=== PATIENT | male | born 1955 | race Caucasian/White ===

== ENCOUNTER 2024-12-04 13:06 | Outpatient (CLI) | payer MEDICARE, SELFPAY | END 2024-12-04 13:07 | disposition home or self-care (01) | LOC: AMB 12-07 09:01 | PROVIDERS: Visit Provider Family Medicine | DX: R45.851 Suicidal ideations (principal) | CPT/HCPCS: A0425; A0427 ==

== ENCOUNTER 2024-12-04 13:25 | Emergency (ER) | payer MEDICARE, SELFPAY ==
[2024-12-04] VITALS (18 sets, daily range): BP systolic 112–144; BP diastolic 63–93; PULSE 43–78; RESP 16; TEMP 36.5–36.7; O2SAT 96–100
--- NOTE | 2024-12-04 13:48 | ED_ITS ---
HPI - General Adult General Date Seen: 12/04/24 <Margarette Gillespie MD - Last Filed: 12/06/24 13:24> Chief complaint: Overdose <Margarette Gillespie MD - Last Filed: 12/06/24 13:24> Stated complaint: Mental Health <Margarette Gillespie MD - Last Filed: 12/06/24 13:24> Time Seen by Provider: 12/04/24 13:35 <Margarette Gillespie MD - Last Filed: 12/06/24 13:24> History of Present Illness HPI narrative: Patient is a 68-year-old here by EMS with family accompanying, for evaluation after intentional overdose. He tells me that he has been struggling with depression for 3 years, ever since he had a stroke. Sounds like he does not have really much in the way of residual deficits although he notes that his hands shake sometimes and he feels nervous and sometimes his head feels fuzzy or numb. He attributes these to his stroke. He notes anhedonia, fatigue, poor sleep. He says he was just tired of feeling this way and so today he took 20 melatonin, he was under the impression this was a sleeping pill. He now says he knows it was really a dumb thing to do. He denies other ingestion, denies prior suicide attempts. He says that for about 20 years he has been on Effexor which he says helps with some kind of ?head swing but does not seem to help with depression. He notes that someone started him on Buspar at some point which he took for about a month, did not feel was helpful and discontinued it. He has not really seen anybody specifically to address depression aside from that. <Margarette Gillespie MD - Last Filed: 12/06/24 13:24> Related Data Home medications: Home Medications ?Medication ?Instructions ?Recorded ?Confirmed venlafaxine 150 mg tablet,extended 150 mg PO DAILY 12/04/24 release 24 hr <Margarette Gillespie MD - Last Filed: 12/06/24 13:24> Allergies/adverse reactions: Allergies Allergy/AdvReac Type Severity Reaction Status Date / Time No Known Drug Allergies Allergy Verified 12/04/24 13:36 <Margarette Gillespie MD - Last Filed: 12/06/24 13:24> Review of Systems Status of ROS: Reports: 6 or more systems reviewed and unremarkable except as noted in History and below <Margarette Gillespie MD - Last Filed: 12/06/24 13:24> [facility] Social History: Social History Smoking Status: Never smoker How often do you have a drink containing alcohol: never AUDIT-C Alcohol total score: 0 Non-prescribed substance use: marijuana (any form) <Margarette Gillespie MD - Last Filed: 12/06/24 13:24> Exam Narrative: Exam Narrative: Vital signs reviewed In general, alert, nontoxic elderly male. Conversant, well groomed. Good eye contact. Head: Normocephalic, atraumatic. Eyes: Sclera clear. Pupils equal and reactive. ENT: Mucous membranes moist. Neck: Supple without adenopathy. Heart: Regular rate and rhythm without murmur. Lungs: Clear. No increased work of breathing, crackles or wheezes. Abdomen: Soft, nontender to palpation. Extremities: Well perfused, pulses intact. No significant edema. Neurologic: Alert, conversant. Speech fluent, face symmetric. Moves all extremities equally. Skin: Warm, dry well perfused. Affect: Flat <Margarette Gillespie MD - Last Filed: 12/06/24 13:24> Const: Vital Signs, click to edit/add: Vital Signs - 24 hr 12/04/24 13:31 12/04/24 13:39 12/04/24 13:45 Temperature 97.7 F Pulse Rate 52 L 49 L Pulse Rate [Pulse Oximeter] 54 L Respiratory Rate 16 Blood Pressure Blood Pressure [Le ft Upper Arm] 140/91 H Pulse Oximetry 97 98 98 Oxygen Delivery Me thod Room Air 12/04/24 13:46 12/04/24 14:00 12/04/24 14:01 Temperature Pulse Rate 60 47 L 48 L Pulse Rate [Pulse Oximeter] Respiratory Rate 16 Blood Pressure 137/93 H 138/84 Blood Pressure [Le ft Upper Arm] Pulse Oximetry 96 98 98 Oxygen Delivery Me thod 12/04/24 14:15 12/04/24 14:17 12/04/24 14:30 Temperature Pulse Rate 49 L 49 L 47 L Pulse Rate [Pulse Oximeter] Respiratory Rate Blood Pressure 137/92 H Blood Pressure [Le ft Upper Arm] Pulse Oximetry 99 99 98 Oxygen Delivery Me thod 12/04/24 14:31 12/04/24 14:45 12/04/24 14:46 Temperature Pulse Rate 43 L 46 L 45 L Pulse Rate [Pulse Oximeter] Respiratory Rate Blood Pressure 144/77 H 132/79 Blood Pressure [Le ft Upper Arm] Pulse Oximetry 96 100 98 Oxygen Delivery Me thod 12/04/24 15:00 12/04/24 15:02 12/04/24 15:15 Temperature Pulse Rate 48 L 48 L 46 L Pulse Rate [Pulse Oximeter] Respiratory Rate Blood Pressure Blood Pressure [Le ft Upper Arm] Pulse Oximetry 100 100 98 Oxygen Delivery Me thod 12/04/24 15:17 12/04/24 18:55 Temperature Pulse Rate 60 Pulse Rate [Pulse Oximeter] 78 Respiratory Rate 16 Blood Pressure 143/79 H Blood Pressure [Le ft Upper Arm] 112/63 Pulse Oximetry 98 98 Oxygen Delivery Me thod Room Air <Margarette Gillespie MD - Last Filed: 12/06/24 13:24> Vital Signs, click to edit/add: Vital Signs - 24 hr 12/04/24 13:31 12/04/24 13:39 12/04/24 13:45 Temperature 97.7 F Pulse Rate 52 L 49 L Pulse Rate [Pulse Oximeter] 54 L Respiratory Rate 16 Blood Pressure Blood Pressure [Le ft Upper Arm] 140/91 H Pulse Oximetry 97 98 98 Oxygen Delivery Me thod Room Air 12/04/24 13:46 12/04/24 14:00 12/04/24 14:01 Temperature Pulse Rate 60 47 L 48 L Pulse Rate [Pulse Oximeter] Respiratory Rate 16 Blood Pressure 137/93 H 138/84 Blood Pressure [Le ft Upper Arm] Pulse Oximetry 96 98 98 Oxygen Delivery Me thod 12/04/24 14:15 12/04/24 14:17 12/04/24 14:30 Temperature Pulse Rate 49 L 49 L 47 L Pulse Rate [Pulse Oximeter] Respiratory Rate Blood Pressure 137/92 H Blood Pressure [Le ft Upper Arm] Pulse Oximetry 99 99 98 Oxygen Delivery Me thod 12/04/24 14:31 12/04/24 14:45 12/04/24 14:46 Temperature Pulse Rate 43 L 46 L 45 L Pulse Rate [Pulse Oximeter] Respiratory Rate Blood Pressure 144/77 H 132/79 Blood Pressure [Le ft Upper Arm] Pulse Oximetry 96 100 98 Oxygen Delivery Me thod 12/04/24 15:00 12/04/24 15:02 12/04/24 15:15 Temperature Pulse Rate 48 L 48 L 46 L Pulse Rate [Pulse Oximeter] Respiratory Rate Blood Pressure Blood Pressure [Le ft Upper Arm] Pulse Oximetry 100 100 98 Oxygen Delivery Me thod 12/04/24 15:17 12/04/24 18:55 Temperature Pulse Rate 60 Pulse Rate [Pulse Oximeter] 78 Respiratory Rate 16 Blood Pressure 143/79 H Blood Pressure [Le ft Upper Arm] 112/63 Pulse Oximetry 98 98 Oxygen Delivery Me thod Room Air <Debi Ibarra MD - Last Filed: 12/04/24 21:14> Course Course ED Course: We touched base with poison Control, they are not concerned about the melatonin. We will check a Tylenol and aspirin level to make sure there is no coingestion. He certainly seems to be struggling with depression which is untreated at this time. He is telling me that he does not feel that he needs to be inpatient, that he recognizes that what he did today was not something he should have done. Family however reports that they been trying to get him to see someone for quite a while and he never seems to go. His friend who was with him said that he sent a text message to her after he took the pills telling her what she should do with his belongings. Will have him talk with telehealth and determine best disposition. I spoke with the [facility] psychiatrist. His conversation with family raises concerns about patient's ability to manage this at home, he lives alone, has history of alcohol abuse although he does not drink currently. He was upbeat with the psychiatrist to the point that it seems somewhat forced. To me, he acknowledges feeling extremely down, and overall we feel it is in his best interest to pursue inpatient placement. Although today's overdose was a benign substance, it sounds to me as if he thought he was taking sleeping pills that would actually cause harm, and he took a significant number of them. He is agreeable to that plan at this time. Labs checked including Tylenol aspirin alcohol, these are all negative with the exception of THC on his drug screen. Signed out to oncoming physician awaiting transfer. <Margarette Gillespie MD - Last Filed: 12/06/24 13:24> Reevaluation(s) Time of Reevaluation #1: 17:52 <Debi Ibarra MD - Last Filed: 12/04/24 21:14> Reevaluation #1: Nursing staff notified me that patient usually takes his venlafaxine at 5:00 p.m. at night. He is on extended-release, have ordered 150 mg. Patient has been medically cleared for psychiatric hospitalization. <Debi Alvares MD - Last Filed: 12/04/24 21:14> Time of Reevaluation #2: 21:13 <Debi Ibarra MD - Last Filed: 12/04/24 21:14> Reevaluation #2: [facility] has reported they accepted this patient by nursing staff. Arrangements will be made for transfer. <Debi Ibarra MD - Last Filed: 12/04/24 21:14> Vital Signs Vital signs: Initial Vital Signs Temperature 97.7 F 12/04/24 13:31 Temperature Source Temporal Artery Scan 12/04/24 13:31 Pulse Rate 54 L 12/04/24 13:31 Respiratory Rate 16 12/04/24 13:31 Blood Pressure 140/91 H 12/04/24 13:31 Blood Pressure Mean 107 H 12/04/24 13:31 Pulse Oximetry 97 12/04/24 13:31 Oxygen Delivery Method Room Air 12/04/24 13:31 Vital Signs Temperature 97.7 F 12/04/24 13:31 Pulse Rate 54 L 12/04/24 13:31 Respiratory Rate 16 12/04/24 13:31 Blood Pressure 140/91 H 12/04/24 13:31 Pulse Oximetry 97 12/04/24 13:31 Oxygen Delivery Method Room Air 12/04/24 13:31 Temperature 98.1 F 12/04/24 23:46 Pulse Rate 56 L 12/04/24 23:46 Respiratory Rate 16 12/04/24 23:46 Blood Pressure 130/78 12/04/24 23:46 Pulse Oximetry 98 12/04/24 23:46 Oxygen Delivery Method Room Air 12/04/24 23:46 <Margarette Gillespie MD - Last Filed: 12/06/24 13:24> Initial Vital Signs Temperature 97.7 F 12/04/24 13:31 Temperature Source Temporal Artery Scan 12/04/24 13:31 Pulse Rate 54 L 12/04/24 13:31 Respiratory Rate 16 12/04/24 13:31 Blood Pressure 140/91 H 12/04/24 13:31 Blood Pressure Mean 107 H 12/04/24 13:31 Pulse Oximetry 97 12/04/24 13:31 Oxygen Delivery Method Room Air 12/04/24 13:31 Vital Signs Temperature 97.7 F 12/04/24 13:31 Pulse Rate 54 L 12/04/24 13:31 Respiratory Rate 16 12/04/24 13:31 Blood Pressure 140/91 H 12/04/24 13:31 Pulse Oximetry 97 12/04/24 13:31 Oxygen Delivery Method Room Air 12/04/24 13:31 Temperature 98.1 F 12/04/24 23:46 Pulse Rate 56 L 12/04/24 23:46 Respiratory Rate 16 12/04/24 23:46 Blood Pressure 130/78 12/04/24 23:46 Pulse Oximetry 98 12/04/24 23:46 Oxygen Delivery Method Room Air 12/04/24 23:46 <Debi Ibarra MD - Last Filed: 12/04/24 21:14> Medications Administered Medications: Discontinued Medications Generic Name Dose Route Start Last Admin Trade Name Freq PRN Reason Stop Dose Admin Venlafaxine HCl 150 mg 12/04/24 17:51 12/04/24 17:59 Venlafaxine Er 75 Mg Capsule PO 12/04/24 17:52 150 mg ONCE ONE Administration <Margarette Gillespie MD - Last Filed: 12/06/24 13:24> Discontinued Medications Generic Name Dose Route Start Last Admin Trade Name Freq PRN Reason Stop Dose Admin Venlafaxine HCl 150 mg 12/04/24 17:51 12/04/24 17:59 Venlafaxine Er 75 Mg Capsule PO 12/04/24 17:52 150 mg ONCE ONE Administration <Debi Ibarra MD - Last Filed: 12/04/24 21:14> Medical Decision Making Lab Data Lab results reviewed: Yes I reviewed the patient's lab results <Debi Ibarra MD - L ast Filed: 12/04/24 21:14> Labs: Lab Results 12/04/24 12/04/24 Range/Units 13:58 16:02 WBC 5.85 (4.50-11.00) K/uL RBC 4.49 (4.30-5.90) m/uL Hgb 14.1 (13.5-17.5) gm/dL Hct 41.6 (37.0-53.0) % MCV 93 (80-100) fL MCH 31 (26-34) pg MCHC 34 (32-36) gm/dL RDW Coeff of Kaia 12.1 (11.5-15.5) % Plt Count 352 (140-440) K/uL Neut % (Auto) 53.1 (42.0-72.0) % Lymph % (Auto) 35.9 (20-44) % [place] % (Auto) 7.4 (0.0-11.0) % Eos % (Auto) 2.4 (0.0-7.0) % Baso % (Auto) 1.0 (0.0-3.0) % Neut # (Auto) 3.11 (1.7-7.0) K/uL Lymph # (Auto) 2.10 (0.90-2.90) K/uL Coryell # (Auto) 0.40 (0.00-0.90) K/UL Eos # (Auto) 0.14 (0.00-0.50) K/uL Baso # (Auto) 0.06 (0.00-0.30) K/uL Abs Immat Gran (auto) 0.01 (0.00-0.30) K/uL Imm/Tot Granulo (auto) 0.2 % Sodium 137 (135-149) mmol/L Potassium 4.4 (3.6-5.1) mmol/L Chloride 103 (96-114) mmol/L Carbon Dioxide 28 (20-32) mmol/L Anion Gap 6 L (7-15) mEq/L BUN 12 (7-30) mg/dL Creatinine 0.7 (0.5-1.5) mg/dL Estimated GFR 102 ml/min Glucose 100 (60-115) mg/dL Calcium 9.3 (8.4-10.6) mg/dL Total Bilirubin 0.5 (0.1-1.5) mg/dL Direct Bilirubin 0.2 (0.0-0.5) mg/dL AST 25 (12-35) U/L ALT 22 (4-50) U/L Alkaline Phosphatase 69 (40-150) U/L Total Protein 6.9 (6.0-8.3) g/dL Albumin 4.2 (3.3-5.0) g/dL Urine Color Yellow (Yellow) Urine Appearance Clear (Clear) Urine pH 6.0 (5.0-8.5) Ur Specific [place] 1.025 (1.000-1.030) Urine Protein Negative (Negative) Urine Glucose (UA) Negative (Negative) Urine Ketones Negative (Negative) Urine Blood Negative (Negative) Urine Nitrite Negative (Negative) Urine Bilirubin 1+ A (Negative) Urine Urobilinogen 0.2 (0.2-1.0) Ur Leukocyte Esterase Negative (Negative) Urine RBC 0-2 (0-2) Urine WBC 0-2 (0-5) Ur Squamous Epith Cells None (None-Few) Urine Bacteria None (None) Salicylates < 1.0 L (1.0-10) mg/dL Urine Opiates Screen Negative (Negative) Ur Oxycodone Screen Negative (Negative) Urine Methadone Screen Negative (Negative) Acetaminophen < 10.0 (10.0-30.0) ug/mL Ur Barbiturates Screen Negative (Negative) U Tricyclic Antidepress Negative (Negative) Ur Phencyclidine Scrn Negative (Negative) Ur Amphetamines Screen Negative (Negative) U Methamphetamines Scrn Negative (Negative) U Benzodiazepines Scrn Negative (Negative) Urine Cocaine Screen Negative (Negative) U Marijuana (THC) Screen POSITIVE A (Negative) Ur Drug Screen Comment See Note Ethyl Alcohol < 0.01 (0.01-0.03) % <Margarette Gillespie MD - Last Filed: 12/06/24 13:24> Lab Results 12/04/24 12/04/24 Range/Units 13:58 16:02 WBC 5.85 (4.50-11.00) K/uL RBC 4.49 (4.30-5.90) m/uL Hgb 14.1 (13.5-17.5) gm/dL Hct 41.6 (37.0-53.0) % MCV 93 (80-100) fL MCH 31 (26-34) pg MCHC 34 (32-36) gm/dL RDW Coeff of Kaia 12.1 (11.5-15.5) % Plt Count 352 (140-440) K/uL Neut % (Auto) 53.1 (42.0-72.0) % Lymph % (Auto) 35.9 (20-44) % [place] % (Auto) 7.4 (0.0-11.0) % Eos % (Auto) 2.4 (0.0-7.0) % Baso % (Auto) 1.0 (0.0-3.0) % Neut # (Auto) 3.11 (1.7-7.0) K/uL Lymph # (Auto) 2.10 (0.90-2.90) K/uL [place] # (Auto) 0.40 (0.00-0.90) K/UL Eos # (Auto) 0.14 (0.00-0.50) K/uL Baso # (Auto) 0.06 (0.00-0.30) K/uL Abs Immat Gran (auto) 0.01 (0.00-0.30) K/uL Imm/Tot Granulo (auto) 0.2 % Sodium 137 (135-149) mmol/L Potassium 4.4 (3.6-5.1) mmol/L Chloride 103 (96-114) mmol/L Carbon Dioxide 28 (20-32) mmol/L Anion Gap 6 L (7-15) mEq/L BUN 12 (7-30) mg/dL Creatinine 0.7 (0.5-1.5) mg/dL Estimated GFR 102 ml/min Glucose 100 (60-115) mg/dL Calcium 9.3 (8.4-10.6) mg/dL Total Bilirubin 0.5 (0.1-1.5) mg/dL Direct Bilirubin 0.2 (0.0-0.5) mg/dL AST 25 (12-35) U/L ALT 22 (4-50) U/L Alkaline Phosphatase 69 (40-150) U/L Total Protein 6.9 (6.0-8.3) g/dL Albumin 4.2 (3.3-5.0) g/dL Urine Color Yellow (Yellow) Urine Appearance Clear (Clear) Urine pH 6.0 (5.0-8.5) Ur Specific [place] 1.025 (1.000-1.030) Urine Protein Negative (Negative) Urine Glucose (UA) Negative (Negative) Urine Ketones Negative (Negative) Urine Blood Negative (Negative) Urine Nitrite Negative (Negative) Urine Bilirubin 1+ A (Negative) Urine Urobilinogen 0.2 (0.2-1.0) Ur Leukocyte Esterase Negative (Negative) Urine RBC 0-2 (0-2) Urine WBC 0-2 (0-5) Ur Squamous Epith Cells None (None-Few) Urine Bacteria None (None) Salicylates < 1.0 L (1.0-10) mg/dL Urine Opiates Screen Negative (Negative) Ur Oxycodone Screen Negative (Negative) Urine Methadone Screen Negative (Negative) Acetaminophen < 10.0 (10.0-30.0) ug/mL Ur Barbiturates Screen Negative (Negative) U Tricyclic Antidepress Negative (Negative) Ur Phencyclidine Scrn Negative (Negative) Ur Amphetamines Screen Negative (Negative) U Methamphetamines Scrn Negative (Negative) U Benzodiazepines Scrn Negative (Negative) Urine Cocaine Screen Negative (Negative) U Marijuana (THC) Screen POSITIVE A (Negative) Ur Drug Screen Comment See Note Ethyl Alcohol < 0.01 (0.01-0.03) % <Debi Ibarra MD - Last Filed: 12/04/24 21:14> Discharge Plan Discharge Clinical Impression: Depression, Intentional overdose <Margarette Gillespie MD - Last Filed: 12/06/24 13:24> Patient Disposition: Xfer Other <Margarette Gillespie MD - Last Filed: 12/06/24 13:24> Prescriptions: No Action venlafaxine 150 mg tablet extended release 24hr 150 mg PO DAILY <Margarette Gillespie MD - Last Filed: 12/06/24 13:24> Stand Alone Forms: MyHealth Info Instructions <Margarette Gillespie MD - Last Filed: 12/06/24 13:24>
--- OUTSIDE RECORDS SUMMARY | 2024-12-04 14:08 | XMS_ITS | Encounter Summary ---
Author Organization [facility] Address [address] [place] [id number] Care Team Providers Care Dry Talc Racker Name Role Phone Renea Vega PA-C Primary Care Provi camilo Emely Fernández RN Unavailable Unavailable Renea Vega PA-C Unavailable [phone] Renea Vega PA-C Unavailable [phone] Leann Arcos DO Unavailable [phone] Xiang Field PA-C Unavailable Xiang Field PA-C Unavailable [phone] Xiang Field PA-C Primary Care Provider Roberta Kirkland [facility] Unavailable + [phone] Roberta Kirkland [facility] Unavailable + [phone] Marcy Alvarez Bradford Unavailable [phone] Jailyn Weeks MARINE CHRONOMETER ASSEMBLER Unavailable [phone] Ivet Palmer [facility] Unavailable Unavailabl e Marcy Alvarez W Unavailable [phone] Jailyn Burch PSYCHIATRIC Unavailable Jaida Chávze Unavailable Unavailable David Mccord MD Unavailable Reason for Visit * Reason Onset Date Comments Medication Refill venlafaxine (E FFEXOR-XR) 75 MG 24 hr capsule Panel Management 05/19/2016 PHQ-9 Encounter Details Date Type Department Care Team (Late st Contact Info) Description 05/19/2016 Refill [facility] [address] [place] [phone] Renea Vega PA-C [address] [address] Medication Refill (venlafaxine (EFFEXOR-XR) 75 MG 24 hr capsule ); Panel Management (PHQ-9) Social History Tobacco Use Types Packs/Day Years Used Date Smoking Tobacco: Light Smoker Cigarettes Smokeless Tobacco: Never Comments:2-3 cigs. 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 Genoveva Vences CMA * Telephone Encounter - Genoveva Vences MA - 05/25/2016 3:23 PM CDT Sent questionnaires through [facility] to pt. Genoveva Vences CMA * Telephone Encounter - Carolynn Stiles RN - 05/20/2016 10:17 AM CDT Defer to provider, abstract writer unsure if 6 month follow up visit needed. Routing to PCP and CALOS Isaacs-Please sign if agree. MA-Please contact patient to complete PHQ-9. Thank you! SARIKA Grimes, RN venlafaxine (EFFEXOR-XR) 75 MG 24 hr capsule Last Written Prescription Date: 12/20/15 Last Fill Quantity: 90, # refills: 1 Last Office Visit with [facility], P or [facility] prescribing provider: 12/19/15 with Danisha Vega BP Readings from Last 3 Encounters: 12/19/15 100/76 04/03/15 108/60 12/04/14 100/68 Pulse: (for Fetzima) Creatinine Date Value Ref Range Status 12/19/2015 0.78 0.66 - 1.25 mg/dL Final ] Last PHQ-9 score on record= PHQ-9 SCORE 12/20/2015 Total Score MyChart - Total Score 2 documented in this encounter Plan of Treatment Not on file documented as of this encounter Goals Goal Patient Goal Type Associated Problems Recent Progress Patient-Stated? Author Medical General Yes Emely Fernández, RN Note: Patient states that he understands to seek emergency medical eval if he has suicidal ideation so that he is safe. As of today's date 04/24/2015 goal is met at 51 - 75%. Goal Status: Active documented as of this encounter Visit Diagnoses Diagnosis PAULO (generalized anxiety disorder) Generalized anxiety disorder Major depressive disorder, recurrent, severe without psychotic features (H) Major depressive disorder, recurrent episode, severe, without mention of psychotic behavior documented in this encounter Additional Health Concerns Assessment Noted Time PHQ-9 Depression Total Score: 2 12/21/19 16 7:21 AM CDT documented as of this encounter Care Teams Dry Talc Racker Relationship Specialty Start Date End Date Renea Vega PA-C PCP - General Physician Bilingual Medical Receptionist 09/19/13 01/19/24 Renea Vega PA-C [address] [address] PCP - Assigned PCP 09/24/13 05/10/18 Xiang Field PA-C [address] [place] [address] PCP - General Physician Bilingual Medical Receptionist 01/20/24 11/29/24 Emely Fernández, RN [facility] Internal Medicine 04/24/15 Renea Vega PA-C [address] [address] Assigned PCP 09/24/13 12/24/18 Leann Arcos DO [address] [place] [address] Physician Neurology 11/23/23 Xiang Field PA-C [address] [place] [address] Physician Bilingual Medical Receptionist Physician Bilingual Medical Receptionist 11/23/23 Xiang Field PA-C [address] [place] [address] Assigned PCP 12/29/23 Roberta Kirkland [facility] [address] [place] [address] [phone] Pharmacist Pharmacist 01/26/24 Roberta Kirkland [facility] [address] [place] [address] [phone] Assigned MTM Pharmacist 01/29/24 Marcy Alvarez, CHW Community Health Worker 04/20/2404/21 Jailyn Weeks, [facility] Lead Machinist [facility] Primary Care - CC 04/21/24 Ivet Palmer [facility] Lead Machinist Wood 04/28/2407/07 Marcy Alvarez, W Community Health Worker 04/28/2405/22 Jailyn Burch, [facility] [address] [facility] LAMBERT Mendoza [address] [id number] Assigned Behavioral Health Provider 04/30/24 Jaida Chávez Community Health Worker 05/22/2407/07 David Mccord MD [address] [facility] [place] [place] [address] Assigned Neuroscience Provider 05/28/24 documented as of this encounter
--- OUTSIDE RECORDS SUMMARY | 2024-12-04 14:08 | XMS_ITS | Encounter Summary ---
Author Organization [facility] Address [address], [place] [address] Care Team Providers Care Oven Roaster Name Role Phone Dillon Dodd PA-C Primary Care Provider + [phone] Encounter Details Date Type Department Care Team (Latest Contact Info) Description 02/10/1995 Orders Only Allan Ashford MD [facility] ALLAN Mendoza [facility], [address] Social History Tobacco Use Types Packs/Day Years Used Date Smoking Tobacco: Never Assessed Sex and Gender Information Value Date Recorded Sex Assigned at Not on file Legal Sex Male 4:09 AM CDT Gender Identity Not on file Sexual Orientation Not on file documented as of this encounter Plan of Treatment Not on file documented as of this encounter Visit Diagnoses Not on filedocumented in this encounter Additional Health Concerns Infection Onset Date Last Indicated Resolved Time R/O COVID19 01/26/2020 01/26/2020 02/02/2020 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
--- OUTSIDE RECORDS SUMMARY | 2024-12-04 14:08 | XMS_ITS | Encounter Summary ---
Author Organization [facility] Address [address] [place] [address] Care Team Providers Care Tax Associate Name Role Phone Renea Vega PA-C Primary Care Provi camilo Emely Fernández RN Unavailable Unavailable Renea Vega PA-C Unavailable +[phone] Renea Vega PA-C Unavailable +[phone] Leann Arcos DO Unavailable [phone] Xiang Field PA-C Unavailable Xiang Field PA-C Unavailable +[phone] Xiang Field PA-C Primary Care Provider Roberta Kirkland [facility] Unavailable + [phone] Roberta Kirkland [facility] Unavailable + [phone] Marcy Alvarez Bradford Unavailable [phone] Jailyn Weeks MATH COACH Unavailable Ivet Palmer [facility] Unavailable Unavailabl e Marcy Alvarez W Unavailable [phone] Jailyn Burch [facility] Unavailable Jaida Chávez Unavailable Unavailable David Mccord MD Unavailable Reason for Visit * Reason Onset Date Comments Patient Reminder 09/11/2015 Due for f/u rafael t with Silvia as per plan in last ov. Encounter Details Date Type Department Care Team (Late st Contact Info) Description 09/11/2015 [facility] [address] [address] Kristen Salinas, RN Patient Reminder (Due for f/u appt with Pl... Social History Tobacco Use Types Packs/Day Years Used Date Smoking Tobacco: Every Day Cigarettes Smokeless Tobacco: Never Comments:2-3 cigs. 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 Gender Identity Male 06/28/2024 4:08 PM CDT Sexual Orientation Straight 06/28/2024 4 :08 PM CDT documented as of this encounter Plan of [...] filedocumented in this encounter Additional Health Concerns Assessment Noted Time PHQ-9 Depression Total Score: 17 016 9:38 AM RUBBER STAMP ASSEMBLER documented as of this encounter Care Teams Tax Associate Relationship Specialty Start Date End Date Renea Vega PA-C PCP - General Physician Content Coordinator 09/19/13 01/19/24 Renea Vega PA-C [address] [address] PCP - Assigned PCP 09/24/13 05/10/18 Xiang Field PA-C [address] [address] PCP - General Physician Content Coordinator 01/20/24 11/29/24 Emely Fernández, RN Clinic Dyeing Machine Feeder Internal Medicine 04/24/15 Renea Vega PA-C [address] [address] Assigned PCP 09/24/13 12/24/18 Leann Arcos DO [address] [place] [address] Physician Neurology 11/23/23 Xiang Field PA-C [address] [place] [address] Physician Content Coordinator Physician Content Coordinator 11/23/23 Xiang Field PA-C [address] [place] [address] Assigned PCP 12/29/23 Roberta Kirkland [facility] [address] [place] [address] [id number] Pharmacist Pharmacist 01/26/24 Roberta Kirkland [facility] [address] [place] [address] 369114 Assigned MTM Pharmacist 01/29/24 Marcy Alvarez CHW Community Health Worker 04/20/2404/21 Jailyn Weeks, [facility] Lead Dyeing Machine Feeder Primary Care - CC 04/21/24 Ivet Palmer LICSW Lead Dyeing Machine Feeder 04/28/2407/07 Marcy Alvarez, W Community Health Worker 04/28/2405/22 Jailyn Burch, [facility]IOR[facility] [address] [facility] [place] Mendoza [address] [address] Assigned Behavioral Health Provider 04/30/24 Jaida Chávez Community Health Worker 05/22/2407/07 David Mccord MD 6545 [facility] [place] [address] Assigned Neuroscience Provider 05/28/24 documented as of this encounter
--- OUTSIDE RECORDS SUMMARY | 2024-12-04 14:08 | XMS_ITS | Encounter Summary ---
Author Organization [facility] Address [address] [place] [address] Care Team Providers Care Make Up Arranger Name Role Phone Renea Vega PA-C Primary Care Provi camilo Emely Fernández RN Unavailable Unavailable Renea Vega PA-C Unavailable +[phone] Renea Vega PA-C Unavailable +[phone] Leann Arcos DO Unavailable [phone] Xiang Field PA-C Unavailable Xiang Field PA-C Unavailable +[phone] Xiang Field PA-C Primary Care Provider Roberta Kirkland [facility] Unavailable + [phone] Roberta Kirkland [facility] Unavailable + [phone] Marcy Alvarez Bradford Unavailable [phone] Jailyn Weeks ELEMENTARY EDUCATOR Unavailable [phone] Ivet Palmer [facility] Unavailable Unavailabl e Marcy Alvarez CHW Unavailable [phone] Jailyn Burch [facility] Unavailable Jaida Chávez Unavailable Unavailable David Mccord MD Unavailable Encounter Details Date Type Department Care Team (Late st Contact Info) Description 05/25/2016 My[facility] Medical Advice [address] [address] Genoveva Vences MA Social History Tobacco Use Types Packs/Day Years [...] PM CDT 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 Sex Male 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 COUNTER 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 Gender Identity Male 06/28/2024 4:08 PM CDT [...] documented as of this encounter Care Teams Make Up Arranger Relationship Specialty Start Date End Date Renea Vega PA-C PCP - General Physician Home Health Travel Ot 09/19/13 01/19/24 Renea Vega PA-C 3033 [facility] [address] [place] [address] PCP - Assigned PCP 09/24/13 05/10/18 Xiang Field PA-C [address] [address] PCP - General Physician Home Health Travel Ot 01/20/24 11/29/24 Emely Fernández, RN Clinic Cnc Lathe Programmer Internal Medicine 04/24/15 Renea Vega PA-C [address] [address] Assigned PCP 09/24/13 12/24/18 Leann Arcos DO [address] [place] [address] Physician Neurology 11/23/23 Xiang Field PA-C [address] [address] Physician Home Health Travel Ot Physician Home Health Travel Ot 11/23/23 Xiang Field PA-C [address] [address] Assigned PCP 12/29/23 Roberta Kirkland [facility] [address] [place] [address] [id number] Pharmacist Pharmacist 01/26/24 Roberta Kirkland [facility] [address] [place] [address] 542964 Assigned MTM Pharmacist 01/29/24 Marcy Alvarez CHW Community Health Worker 04/20/2404/21 Jailyn Weeks LSW Lead Cnc Lathe Programmer Primary Care - CC 04/21/24 Ivet Palmer LICSW Lead Cnc Lathe Programmer 04/28/2407/07 Marcy Alvarez, W Community Health Worker 04/28/2405/22 Jailyn Burch, [facility] BEHAVIORAL HEALTH 606 [facility] L[facility] Mendoza, [address] [address] Assigned Behavioral Health Provider 04/30/24 Jaida Chávez Community Health Worker 05/22/2407/07 David Mccord MD [address] [facility] [place] Mendoza [place], [place] [address] Assigned Neuroscience Provider 05/28/24 documented as of this encounter
--- OUTSIDE RECORDS SUMMARY | 2024-12-04 14:08 | XMS_ITS | Encounter Summary ---
Author Organization [facility] Address [address], [place] [address] Care Team Providers Care Outside Contractor Sales Name Role Phone Dillon Dodd PA-C Primary Care Provider + [phone] Encounter Details Date Type Department Care Team (Latest Contact Info) Description 08/31/1995 Orders Only Allan Ashford MD OFF SITE [facility] ALLAN Mendoza [facility], [address] Social History Tobacco Use Types Packs/Day Years [...] R/O COVID19 01/26/2020 01/26/2020 02/02/2020 3:17 AM CAMPUS MONITOR documented as of this encounter Care Teams Outside Contractor Sales Relationship Specialty Start Date End Date Dillon Dodd PA-C [address] [place] [address] PCP - General Physician Trestleman 09/01/22 06/29/24 documented as of this encounter
--- OUTSIDE RECORDS SUMMARY | 2024-12-04 14:08 | XMS_ITS | Encounter Summary ---
Author Organization [employer] Address [address], [place] [address] Care Team Providers Care Industrial Engineering Manager Name Role Phone Dillon Dodd PA-C Primary Care Provider [phone] Encounter Details Date Type Department Care Team (Latest Contact Info) Description 11/12/1995 Orders Only Bob West MD [address] [place] [address] Social History Tobacco Use Types Packs/Day Years [...] R/O COVID19 01/26/2020 01/26/2020 02/02/2020 3:17 AM POLICE SPECIALIST documented as of this encounter Care Teams Industrial Engineering Manager Relationship Specialty Start Date End Date Dillon Dodd PA-C [address] [place] [address] PCP - General Physician Crester 09/01/22 06/29/24 documented as of this encounter
--- OUTSIDE RECORDS SUMMARY | 2024-12-04 14:08 | XMS_ITS | Encounter Summary ---
Author Organization [employer] Address [address], [place] [address] Care Team Providers Care Pin Drafting Machine Tender Name Role Phone Dillon Dodd PA-C Primary Care Provider + [phone] Encounter Details Date Type Department Care Team (Latest Contact Info) Description 05/10/2017 Correspondence None No Primary/Referring, Phy NEW PATIENT Social History Tobacco Use Types Packs/Day Years Used Date Smoking Tobacco: Some Days Cigarettes Smokeless Tobacco: Never Comments:cutting down and ab out to quit soon Alcohol Use Standard Drinks/Week Comments Yes 0 (1 standard drink = 0.6 oz pur e alcohol) occationally Sex and Gender Information Value Date Recorded [...] R/O COVID19 01/26/2020 01/26/2020 02/02/2020 3:17 AM COMMERCIAL ACCOUNTANT documented as of this encounter Care Teams Pin Drafting Machine Tender Relationship Specialty Start Date End Date Dillon Dodd PA-C [address] [place] [address] PCP - General Physician Web Pressman 09/01/22 06/29/24 documented as of this encounter
--- OUTSIDE RECORDS SUMMARY | 2024-12-04 14:09 | XMS_ITS | Encounter Summary ---
Author Organization [facility] Address [address] [place] [address] Care Team Providers Care Manager Internship Name Role Phone Enrrique Grant MD Primary Care Provider [phone] Renea Vega PA-C Primary Care Provi cmailo Emely Fernández RN Unavailable Unavailable Renea Vega PA-C Unavailable +[phone] Renea Vega PA-C Unavailable +[phone] Leann Arcos DO Unavailable [phone] Xiang Field PA-C Unavailable [phone] Xiang Field PA-C Unavailable +[phone] Xiang Field PA-C Primary Care Provider Roberta Kirkland [facility] Unavailable + [phone] Roberta Kirkland [facility] Unavailable +[phone] Marcy Alvarez [facility] Unavailable [phone] Jailyn Weeks [facility] Unavailable +[phone] Ivet Palmer [facility] Unavailable Unavailabl e Marcy Alvarez CHW Unavailable [phone] Jailyn Burch [facility] Unavailable + [phone] Jaida Chávez Unavailable Unavailable FlexDavid skinner MD Unavailable Encounter Details Date Type Department Care Team (Late st Contact Info) Description 07/12/2013 MyC Medical Advice [address] [phone] Beth Lilly, CHIEF PAYROLL CLERK Social History Tobacco Use Types Packs/Day Years Used Date Smoking Tobacco: Every Day Cigarettes Smokeless Tobacco: Never Alcohol Use Standard Drinks/Week Comments Yes 0 (1 standard drink = 0.6 oz pur e alcohol) once ain awhile Sex and Gender Information Value Date Recorded Sex Assigned at Male 06/28/2024 4:08 PM CDT Legal 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 Male 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 ROLL 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 Gender Identity Male 06/28/2024 4:08 PM CDT Sexual Orientation Straight 06/28/2024 4: 08 PM CDT documented as of this encounter Plan of Treatment Not on file documented as of this encounter Visit Diagnoses Not on filedocumented in this encounter Care Teams Manager Internship Relationship Specialty Start Date End Date Enrrique Grant MD PCP - General Family Practice 12/09/12 09/18/13 Renea Vega PA-C PCP - General Physician Field Investigator 09/19/13 01/19/24 Renea Vega PA-C 3033 [facility] [address] [place] [address] PCP - Assigned PCP 09/24/13 05/10/18 Xiang Field PA-C 2270 [facility] 200 [place] [address] PCP - General Physician Field Investigator 01/20/24 11/29/24 Emely Fernández RN Clinic Manager Internship Internal Medicine 04/24/15 Renea Vega PA-C 3033 [facility] [address] [place] [address] Assigned PCP 09/24/13 12/24/18 Leann Arcos DO [address] [place] [address] Physician Neurology 11/23/23 Xiang Field PA-C [address] [place] [address] Physician Field Investigator Physician Field Investigator 11/23/23 Xiang Field PA-C [address] [address] Assigned PCP 12/29/23 Roberta Kirkland [facility] [address] [place] [address] 606194 Pharmacist Pharmacist 01/26/24 Roberta Kirkland [facility] [address] [place] [address] Assigned MTM Pharmacist 01/29/24 Marcy Alvarez CHW Community Health Worker 04/20/2404/21 Jailyn Weeks LSW Lead Manager Internship Primary Care - CC 04/21/24 Ivet Palmer LICSW Lead Manager Internship 04/28/2407/07 Marcy Alvarez CHW Community Health Worker 04/28/2405/22 Jailyn Burch, [facility] BEHAVIORAL HE[facility] 606 [facility] [place] Mendoza, [address] [address] Assigned Behavioral Health Provider 04/30/24 Jaida Chávez Community Health Worker 05/22/2407/07 David Mccord MD 6545 [facility] [place], [place] [address] Assigned Neuroscience Provider 05/28/24 documented as of this encounter
--- OUTSIDE RECORDS SUMMARY | 2024-12-04 14:09 | XMS_ITS | Encounter Summary ---
Author Organization [facility] Address [address] [place] [address] Care Team Providers Care Rubber Belt Splicer Name Role Phone Enrrique Grant MD Primary Care Provider [phone] Renea Vega PA-C Primary Care Provi camilo Emely Fernández RN Unavailable Unavailable Renea Vega PA-C Unavailable +[phone] Renea Vega PA-C Unavailable +[phone] Leann Arcos DO Unavailable [phone] Xiang Field PA-C Unavailable +[phone] Xiang Field PA-C Unavailable +[phone] Xiang Field PA-C Primary Care Provider Roberta Kirkland [facility] Unavailable + [phone] Roberta Kirkland [facility] Unavailable +[phone] Marcy Alvarez [facility] Unavailable [phone] Jailyn Weeks RAM CAR OPERATOR Unavailable [phone] Ivet Palmer [facility] Unavailable Unavailabl e Marcy Alvarez CHW Unavailable [phone] Jailyn Burch [facility] Unavailable + [phone] Jaida hCávez Unavailable Unavailable FlexDavid skinner MD Unavailable Reason for Visit * Reason Onset Date Comments Refill Request 01/10/2013 PHQ-9 Encounter Details Date Type Department Care Team (Late st Contact Info) Description 01/10/2013 [facility] [address] [place] [address] Erlinda [facility] Refill Request (PHQ-9) Social History Tobacco Use Types Packs/Day Years Used Date Smoking Tobacco: Every Day Cigarettes Smokeless Tobacco: Never Alcohol Use Standard Drinks/Week Comments Yes 0 (1 standard drink = 0.6 oz pur e alcohol) once ain awhile Sex and Gender Information Value Date Recorded Sex Assigned at Male 06/28/2024 4:08 PM CDT Legal Sex Male 3:[address]TER Gender Identity Male 06/28/2024 4:08 PM CDT Sexual Orientation Straight 06/28/2024 4: 08 PM CDT documented as of this encounter Plan of Treatment Not on file documented as of this encounter Visit Diagnoses Not on filedocumented in this encounter Care Teams Rubber Belt Splicer Relationship Specialty Start Date End Date Enrrique Grant MD PCP - General Family Practice 12/09/12 09/18/13 Renea Vega PA-C PCP - General Physician Supervisor Blood Donor Recruiters 09/19/13 01/19/24 Renea Vega PA-C 3033 [facility] 275 [place] [address] PCP - Assigned PCP 09/24/13 05/10/18 Xiang Field PA-C 2270 [facility] 200 [place] [address] PCP - General Physician Supervisor Blood Donor Recruiters 01/20/24 11/29/24 Emely Fernández, RN Clinic Gravel Roofer Internal Medicine 04/24/15 Renea Vega PA-C [address] [address] Assigned PCP 09/24/13 12/24/18 Leann Arcos DO [address] [place] [address] Physician Neurology 11/23/23 Xiang Field PA-C [address] [place] [address] Physician Supervisor Blood Donor Recruiters Physician Supervisor Blood Donor Recruiters 11/23/23 Xiang Field PA-C [address] [place] [address] Assigned PCP 12/29/23 Roberta Kirkland [facility] [address] [place] [address] Pharmacist Pharmacist 01/26/24 Roberta Kirkland [facility] [address] [place] [address] Assigned MTM Pharmacist 01/29/24 Marcy Alvarez CHW Community Health Worker 04/20/2404/21 Jailyn Weeks LSW Lead Gravel Roofer Primary Care - CC 04/21/24 Ivet Palmer LICSW Lead Gravel Roofer 04/28/2407/0725 Marcy Alvarez, W Community Health Worker 04/28/2405/22 Jailyn Burch, [facility] BEHAVIORAL HEALTH 606 [facility]AM[facility]ERT Mendoza, [address] [address] Assigned Behavioral Health Provider 04/30/24 Jaida Chávez Community Health Worker 05/22/24 504/01 David Mccord MD 6545 [facility] [place]endoza [place], [place] [address] Assigned Neuroscience Provider 05/28/24 documented as of this encounter
--- OUTSIDE RECORDS SUMMARY | 2024-12-04 14:09 | XMS_ITS | Encounter Summary ---
Author Organization [facility] Address [address] [place] [address] Care Team Providers Care Resume Specialist Name Role Phone Renea Vega PA-C Primary Care Provi camilo Emely Fernández RN Unavailable Unavailable Renea Vega PA-C Unavailable +[phone] Renea Vega PA-C Unavailable +[phone] Leann Arcos DO Unavailable [phone] Xiang Field PA-C Unavailable +[phone] Xiang Field PA-C Unavailable +[phone] Xiang Field PA-C Primary Care Provider Roberta Kirkland [facility] Unavailable + [phone] Roberta Kirkland [facility] Unavailable + [phone] Mracy Alvarez Bradford Unavailable [phone] Jailyn Weeks HELMET HAT SWEATBAND PUNCHER Unavailable Ivet Palmer 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 SARIKA Grimes, RN * Telephone Encounter - Viridiana Mota - 05/17/2015 2:43 PM CST Spoke with patient and he is currently seeing a provider for this situation now has the next 3 Wednesday seeing this other provider after his visits with provider he will come in to see [facility]er FOOD DELIVERY DRIVER * Telephone Encounter - Genoveva Vences MA - 05/17/2015 9:46 AM CST Entered phq 9 and PAULO. Mychart pt to make an appointment because his score was a 17. Genoveva Vences MA FOOD DELIVERY DRIVER documented in this encounter Plan of Treatment [...] Depression Total Score: 17 016 9:38 AM FAST FOOD DELIVERY DRIVER documented as of this encounter Care Teams Resume Specialist Relationship Specialty Start Date End Date Renea Vega PA-C PCP - General Physician Senior Manufacturing Engineer 09/19/13 01/19/24 Renea Vega PA-C [address] [address] PCP - Assigned PCP 09/24/13 05/10/18 Xiang Field PA-C 2270 [facility] 200 [place] [address] PCP - General Physician Senior Manufacturing Engineer 01/20/24 11/29/24 Emely Fernández, RN Clinic Boiler House Operator Internal Medicine 04/24/15 Renea Vega PA-C 3033 [facility] 275 [place] [address] Assigned PCP 09/24/13 12/24/18 Leann Arcos DO 500 [place] [address] Physician Neurology 11/23/23 Xiang Field PA-C 2270 [facility] 200 [place] [address] Physician Senior Manufacturing Engineer Physician Senior Manufacturing Engineer 11/23/23 Xiang Field PA-C 2270 [facility] 200 [place] [address] Assigned PCP 12/29/23 [facility] 2450 [facility] [address] [place], [place] [id number] Pharmacist Pharmacist 01/26/24 [facility] 2450 [facility] [address] [place], [place] [id number] Assigned MTM Pharmacist 01/29/24 Marcy Alvarez W Community Health Worker 04/20/2404/21 Jailyn Weeks, [facility] Lead Boiler House Operator Primary Care - CC 04/21/24 Ivet Palmer, [facility] Lead Boiler House Operator 04/28/2407/07 Marcy Alvarez Bradford Community Health Worker 04/28/2405/22 [facility] [address] [place] [address] Assigned Behavioral Health Provider 04/30/24 Jaida Chávez Community Health Worker 05/22/2407/07 David Mccord MD 6545 [facility] [place] [id number] Assigned Neuroscience Provider 05/28/24 documented as of this encounter
--- OUTSIDE RECORDS SUMMARY | 2024-12-04 14:09 | XMS_ITS | Encounter Summary ---
Author Organization [facility] Address [address] [place] [address] Care Team Providers Care Meat Process Worker Name Role Phone Renea Vega PA-C Primary Care Provi camilo Emely Fernández RN Unavailable Unavailable Renea Vega PA-C Unavailable [phone] Renea Vega PA-C Unavailable +[phone] Leann Arcos DO Unavailable [phone] Xiang Field PA-C Unavailable Xiang Field PA-C Unavailable [phone] Xiang Field PA-C Primary Care Provider Roberta Kirkland [facility] Unavailable + [phone] Roberta Kirkland [facility] Unavailable + [phone] Marcy Alvarez Bradford Unavailable [phone] Jailyn Weeks INSTRUCTOR GROUND SERVICES Unavailable Ivet Palmer [facility] Unavailable Unavailabl e Marcy Alvarez W Unavailable [phone] Jailyn Burch [facility] Unavailable Jaida Chávez Unavailable Unavailable David Mccord MD Unavailable Reason for Visit * Reason Onset Date Comments MyChart Communication 06/02/2015 Symptoms 06/02/2015 worsening headac hes Encounter Details Date Type Department Care Team (Late st Contact Info) Description 06/02/2015 MyC Medical Advice [place] [address] [place] [id number] Renea Vega PA-C [address] [address] MyChart Communication; Symptoms (worsening... Social History Tobacco Use Types Packs/Day Years [...] PM CDT Legal Sex Male 3:30 AM BRONZER Gender Identity Male 06/28/2024 4:08 PM CDT Sexual Orientation Straight 06/28/2024 4: 08 PM CDT documented as of this encounter Miscellaneous Notes * Telephone Encounter - Qian Guerrier RN - 06/03/2015 8:10 AM CDT Strategic Client Executive reviewed and sent patient Splashup message as per below 1. Clarifying on symptoms 2. Advising following up appointment per Silvia 12/04/2014 3. Advised to discussed coverage with insurance Qian Guerrier RN documented in this encounter Plan of Treatment Not on file documented as of this encounter Goals Goal Patient Goal Type Associated Problems Recent Progress Patient-Stated? Author Medical General Yes Emely Fernández RN Note: Patient states that he understands [...] Depression Total Score: 17 016 9:38 AM BRONZER documented as of this encounter Care Teams Meat Process Worker Relationship Specialty Start Date End Date Renea Vega PA-C PCP - General Physician Road Maker 09/19/13 01/19/24 Renea Vega PA-C [address] [address] PCP - Assigned PCP 09/24/13 05/10/18 Xiang Field PA-C [address] [address] PCP - General Physician Road Maker 01/20/24 11/29/24 Emely Fernández, [facility] [place] Internal Medicine 04/24/15 Renea Vega PA-C [address] [address] Assigned PCP 09/24/13 12/24/18 Leann Arcos DO [address] [place] [address] Physician Neurology 11/23/23 Xiang Field PA-C [address] Physician [address] Maker 11/23/23 Xiang Field PA-C 0 [facility] [address] [place] [address] Assigned PCP 12/29/23 [facility] [address] [facility] [address] [place] [address] Pharmacist Pharmacist 01/26/24 [facility] [address] [facility] [address] [place] [address] Assigned MTM Pharmacist 01/29/24 Marcy Alvarez, [facility] Community Health Worker 04/20/2404/21 Jailyn Weeks, [facility] Lead [facility] [place] [place] Primary Care - CC 04/21/24 Ivet Palmer LICSW Lead [facility] [place] 04/28/2407/07 Marcy Alvarez, [facility] Community Health Worker 04/28/2405/22 Jailyn Burch, [facility] [address] [place] [address] Assigned Behavioral Health Provider 04/30/24 Jaida Chávez Community Health Worker 05/22/2407/07 David Mccord MD [address] [facility] [address] [place] [id number] Assigned Neuroscience Provider 05/28/24 documented as of this encounter
--- OUTSIDE RECORDS SUMMARY | 2024-12-04 14:09 | XMS_ITS | Encounter Summary ---
Author Organization [facility] Address [address] [place] [address] Care Team Providers Care Mid Level Business Analyst Name Role Phone Renea Vega PA-C Primary Care Provi camilo Emely Fernández RN Unavailable Unavailable Renea Vega PA-C Unavailable [phone] Renea Vega PA-C Unavailable +[phone] Leann Arcos DO Unavailable [phone] Xiang Field PA-C Unavailable [phone] Xiang Field PA-C Unavailable [phone] Xiang Field PA-C Primary Care Provider Roberta Kirkland [facility] Unavailable + [phone] Roberta Kirkland [facility] Unavailable + [phone] Macry Alvarez Bradford Unavailable [phone] Jailyn Weeks GROUP FITNESS MANAGER Unavailable [phone] Ivet Palmer [facility] Unavailable Unavailabl e Marcy Alvarez CHW Unavailable [phone] Jailyn Burch [facility] Unavailable Jaida Chávez Unavailable Unavailable David Mccord MD Unavailable Encounter Details Date Type Department Care Team (Late st Contact Info) Description 12/02/2014 MyC Medical Advice [address] [address] Renea Vega PA-C [facility] [facility] [address] [place] [address] Social History Tobacco Use Types Packs/Day Years [...] PM CDT 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 Thanks Renea Vega PA-C * Telephone Encounter - Astrid Caldwell RN - 12/03/2014 10:41 AM CDT 11/01/14 was last ov. Please advise on CT request. Do you want evist? RADHA Resendiz documented in this encounter Plan of Treatment Not on file documented as of this encounter Visit Diagnoses Not on filedocumented in this encounter Additional Health Concerns Assessment Noted Time PHQ-9 Depression Total Score: 13 015 4:59 PM CDT documented as of this encounter Care Teams Mid Level Business Analyst Relationship Specialty Start Date End Date Renea Vega PA-C PCP - General Physician Director Case 09/19/13 01/19/24 Renea Vega PA-C [address] [address] PCP - Assigned PCP 09/24/13 05/10/18 Xiang Field PA-C [address] [place] [address] PCP - General Physician Director Case 01/20/24 11/29/24 Emely Fernández, RN Clinic Case Operator Internal Medicine 04/24/15 Renea Vega PA-C [address] [address] Assigned PCP 09/24/13 12/24/18 Leann Arcos DO [address] [place] [address] Physician Neurology 11/23/23 Xiang Field PA-C [address] [place] [address] Physician Director Case Physician Director Case 11/23/23 Xiang Field PA-C [address] [address] Assigned PCP 12/29/23 Roberta Kirkland [facility] [address] [place] [id number] [place] [address] Pharmacist Pharmacist 01/26/24 Roberta Kirkland, [facility] [address] [facility] [address] [place] [address] Assigned MTM Pharmacist 01/29/24 Marcy Alvarez, W Community Health Worker 04/20/2404/21 Jailyn Weeks, [facility] Lead Case Operator Primary Care - CC 04/21/24 Ivet Palmer [facility] Lead Case Operator 04/28/2407/07 Marcy Alvarez, W Community Health Worker 04/28/2405/22 Jailyn Burch, [facility] [address] [place], [place] [address] Assigned Behavioral Health Provider 04/30/24 Jaida Chávez Community Health Worker 05/22/2407/07 David Mccord MD [address] [facility] [place] [address] Assigned Neuroscience Provider 05/28/24 documented as of this encounter
--- OUTSIDE RECORDS SUMMARY | 2024-12-04 14:09 | XMS_ITS | Encounter Summary ---
Author Organization [facility] Address [address] [place] [address] Care Team Providers Care Parts Counter Associate Name Role Phone Renea Vega PA-C Primary Care Provi camilo Emely Fernández RN Unavailable Unavailable Renea Vega PA-C Unavailable [phone] Renea Vega PA-C Unavailable +[phone] Leann Arcos DO Unavailable [phone] Xiang Field PA-C Unavailable Xiang Field PA-C Unavailable [phone] Xiang Field PA-C Primary Care Provider Roberta Kirkland [facility] Unavailable + [phone] Roberta Kirkland [facility] Unavailable + [phone] Marcy Alvarez Bradford Unavailable [phone] Jailyn Weeks VERIFIER OPERATOR Unavailable [phone] Ivet Palmer [facility] Unavailable Unavailabl e Marcy Alvarez CHW Unavailable [phone] Jailyn Burch [facility] Unavailable [phone] Jaida Chávez Unavailable Unavailable David Mccord MD Unavailable Encounter Details Date Type Department Care Team (Late st Contact Info) Description 11/26/2014 MyC Medical Advice [address] [address] Renea Vega PA-C 3033 [facility] [address] [place] [address] Major depressive disorder, recurrent episode, severe, without mention of psychotic behavior (Primary Dx); PAULO (generalized anxiety disorder) Social History Tobacco Use Types Packs/Day Years [...] PM CDT 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 Thanks Renea Vega PA-C documented in this encounter Plan of Treatment Not on file documented as of this encounter Visit Diagnoses Diagnosis Major depressive disorder, recurrent episode, severe, without mention of psychotic behavior- Primary PAULO (generalized anxiety disorder) Generalized anxiety disorder documented in this encounter Additional Health Concerns Assessment Noted Time PHQ-9 Depression Total Score: 13 015 4:59 PM CDT documented as of this encounter Care Teams Parts Counter Associate Relationship Specialty Start Date End Date Renea Vega PA-C PCP - General Physician Cashier Payments Received 7/15/14 11/13/24 Renea Vega PA-C [address] [address] PCP - Assigned PCP 09/24/13 05/10/18 Xiang Field PA-C [address] [place] [address] PCP - General Physician Cashier Payments Received 01/20/24 11/29/24 Emely Fernández, RN Clinic Crime Scene Investigator Internal Medicine 04/24/15 Renea Vega PA-C [address] [address] Assigned PCP 09/24/13 12/24/18 Leann Arcos DO [address] [place] [address] Physician Neurology 11/23/23 Xiang Field PA-C [address] [place] [address] Physician Cashier Payments Received Physician Cashier Payments Received 11/23/23 Xiang Field PA-C [address] [place] [address] Assigned PCP 12/29/23 Roberta Kirkland RPH [address] [place] [address] Pharmacist Pharmacist 01/26/24 Roberta Kirkland RPH [facility] [address] [place], [place] [address] Assigned MTM Pharmacist 01/29/24 Marcy Alvarez, CHW Community Health Worker 04/20/2404/21 Jailyn Weeks, [facility] Lead Crime Scene Investigator Primary Care - CC 04/21/24 Ivet Palmer RADIO MAINTAINER Lead Crime Scene Investigator 04/28/2407/07 Marcy Alvarez, CHW Community Health Worker 04/28/2405/22 Jailyn Burch, [facility] [address] [place], [place] [address] Assigned Behavioral Health Provider 04/30/24 Jaida Chávez Community Health Worker 05/22/2407/07 David Mccord MD [address] [facility] [address] [place] [address] Assigned Neuroscience Provider 05/28/24 documented as of this encounter
--- OUTSIDE RECORDS SUMMARY | 2024-12-04 14:10 | XMS_ITS | Clinical Summary ---
Author Organization [email or web address] Address [address] [place] [address] Care Team Providers Care Family Day Care Provider Name Role Phone Unavailable Primary Care Provider Unavailabl e Source Comments You are receiving this document as you are listed as the primary care provider,follow-up provider, or the patient has been referred to you for consultation.This is in compliance with the Medicare and[facility] EHR Incentive Program,which states Providers who transition their patient to another setting of careor provider of care or refers their patient to another provider of care shouldprovide summary care record for each transition of care or referral. [email or web address] Allergies Active Allergy Reactions Criticality Noted Date Comments Nuts Itching 07/22/2016 Medications aspirin EC 81 MG enteric coated tablet Take 1 Tablet (81 mg) by mouth. 3 Active cycloSPORINE (RESTASIS) 0.05 % eye drop emulsionIndications :Dry eye syndrome of both eyes Place 1 Drop into both eyes every 12 hours. 180 Each 3 3 Active atorvastatin (LIPITOR) 40 MG tabletIndications:H yperlipidemia, unspecified hyperlipidemia type (HRC) Take 1 Tablet (40 mg) by mouth daily. 90 Tablet 3 3 Active traZODone (DESYREL) 50 MG tabletIndications:C hronic insomnia 1-2 tabs at night for sleep 180 Tablet 3 3 Active venlafaxine (EFFEXORXR) 150 MG 24 hour release capsuleIndications: Severe episode of recurrent major depressive disorder, without psychotic features (HRC),Generalized anxiety disorder (HRC) TAKE 1 CAPSULE(150 MG) BY MOUTH DAILY 90 Capsule 1 4 Active Active Problems Problem Noted Date Diagnosed Date Non-recurrent unilateral ing uinal hernia without obstruction or gangrene 02/11/2017 Vitamin D deficiency 04/05/2014 Overview (07/22/2016): Overview: Problem list name updated by automated process. Provider to review Generalized anxiety disorder 09/26/2013 Overview (07/22/2016): Overview: Diagnosis updated by automated process. Provider to review and confirm. Severe episode of recurrent major depressive dis order 11/15/2012 Overview (07/22/2016): Overview: Problem list name updated by automated process. Provider to review Nicotine dependence 11/15/2012 Encounters Date Type Department Care Team Description 11/25/2024 Refill [place] [address] [facility] [id number] [place] [id number] Dario Palmer MD Refill (traZODone (DESYREL) 50 MG tablet [Pharmacy Med Name: TRAZODONE 50MG TABLETS]) from Last 3 Months Immunizations Immunization Administration Dates Next Due Flu Vac (3+ yrs) 12/23/2011 Flu Vac Preserv Free (3+yrs) 11/27/2010 Fluzone Qiv Multidose Vial 0 .25 (6-35 Mos) 02/06/2022 Influenza IIV4 (Quadrivalent ) 0.5mL (73792) 12/25/2020,12/15/2019,12/21/2018,2017,12/19/2015,12/19/2015,12/04/2014,1 ,11/23/2012 Influenza IIV4 (Quadrivalent ) Fluad, 65+ Yrs 2022 PCV20 (Udiuxpi10) 2022 PPSV23 (Pneumovax) 04/08/2017,05/23/2009 Pfizer Monovalent 12+ 07/29/2021 Pfizer Monovalent 12+ Purple Top 01/29/2021,04/2 10/2020,06/12/2020 Tdap 04/29/2021,06/05/2008 Family History Medical History Relation Name Comments Cancer, Colon Brother Schizophrenia Brother Cancer, Breast Sister Relation Name Status Comments Brother Sister Social History Tobacco Use Types Packs/Day Years Used Date Smoking Tobacco: Former Cigarettes Smokeless Tobacco: Never Tobacco Cessation:Counseling Given: Not Answered Comments:cutting down and about to quit soon Alcohol Use Standard Drinks/Week Comments Not Currently 0 (1 standard drink = 0.6 oz pur e alcohol) PHQ-2 Answer Date Recorded PHQ-2 Score 0 2022 Sex and Gender Information Value Date Recorded Sex Assigned at Not on file Legal Sex Male 4:09 AM CDT Gender Identity Not on file Sexual Orientation Not on file Last Filed Vital Signs Vital Sign Reading Time Taken Comments Blood Pressure 127/73 2022 9:02 AM CDT Pulse 53 2022 9:02 AM CDT Temperature 36.1 C (97 F) 08/07/2017 10:13 AM CDT Respiratory Rate 16 2022 9:02 AM CDT Oxygen Saturation 99% 09/17/2022 10:32 AM CDT Inhaled Oxygen Concentration - - Weight 65.3 kg (144 lb) 2022 9:02 AM CDT Height 183.1 cm (6' 0.09) 2022 9:02 AM CD T Body Mass Index 19.48 2022 9:02 AM CDT Plan of Treatment Health Maintenance Due Date Last Done Comments FIT Colon Cancer Screening 2001 Zoster/Shingles Vaccine (1 of 2) 12/23/2007 PSA Screening Discussion 12/23/2023 2022 Medicare Annual Wellness Visit 03/08/2024 2022 COVID-19 Vaccine ( season) 2024 07/29/2021, 01/29/2021, 07/03/2020, Additional history exists Influenza Vaccine (#1) 2024 , 02/06/2022, 12/25/2020, Additional history exists Colonoscopy 08/26/2025 08/26/2022, 03/2008 (Completed) Cholesterol 12/23/2027 2022, 04/09, 04/08/2017 DTaP/Tdap/Td Vaccine (3 - Tdap) 04/29/2031 04/29/2021, 06/05/2008 RSV Vaccine (1 - 1-dose 75+ series) 2032 Hep C Screening (Preventive Services) Completed 12/19/2015 (Completed) Pneumococcal Vaccine 50+ Yrs Completed , 04/08/2017, 05/23/2009 HepA Vaccine Aged Out No longer eligi ble based on patient's age to complete this topic HepB Vaccine Aged Out No longer eligi ble based on patient's age to complete this topic Hib Vaccine Aged Out No longer eligi ble based on patient's age to complete this topic IPV (Polio) Vaccine Aged Out No longe r eligible based on patient's age to complete this topic MCV4 Vaccine Aged Out No longer eligi ble based on patient's age to complete this topic Meningococcal B Vaccine Aged Out No l onger eligible based on patient's age to complete this topic Procedures Procedure Name Priority Date/Time Associated Diagnosis Comments PROSTATIC SPECIFIC ANTIGEN(SCREEN) Routine 2022 9:39 AM CDT Screening for prostate cancer LIPID PANEL & DIRECT LDL (IF NEEDED) Routine 2022 9:39 AM CDT History of ischemic stroke ENDOSCOPY, COLON, SCREENING/DIAGNOSTI C Routine 08/26/2022 2:20 PM CDT Screen for colon cancer from Last 3 Months or Most Recently Relevant to Health Maintenance Results * (ABNORMAL) Lipid Panel & Direct LDL (if Needed) (2022 9:39 AM CDT) Cholesterol 203(H) 0 - 199 mg/dL 2022 1:18 PM CDT [facility] Triglyceride 100 <=149 mg/dL 2022 1:18 PM T [facility] HDL Cholesterol 52 >=40 mg/dL 3 1:18 PM T [facility] LDL, Calculated 131(H) <130 mg/dL 3 1:18 PM T [facility] Non HDL Chol, Calculated 151 <=159 mg/dL 2022 1:18 PM CDT [facility] Cholesterol/HDL Ratio 3.9 <=5.0 2022 1:18 PM CDT [facility] Hours Fasting 14.0 8 - 12 Hours 2022 1:18 PM CDT [facility] Blood Venipuncture / Unknown 2022 9:39 AM CDT 2022 9:39 AM CDT Dillon Dodd PA-C LAB_1 Final Result [facility] [address] [place] [address], [facility] [phone] [facility] [address] [place] [address], [facility] [phone] * PSA - Prostatic Specific Antigen (Screen) (2022 9:39 AM CDT) Prostatic Specific Antigen 0.8 0.0 - 4.0 ng/mL 2022 3:57 PM CDT [facility] Blood Venipuncture / Unknown 2022 9:39 AM CDT 2022 9:39 AM CDT Narrative [facility] - 2022 3:57 PM CDT The [employer] PSA Chemiluminescent immunoassay is used. Results obtained with different test methods or kits cannot be used interchangeably. Dillon Dodd PA-C LAB_1 Final Result [facility] [address] [place], [place] [id number] [place] [address] * Endoscopy, Colon, Screening/Diagnostic (08/26/2022 2:20 PM CDT) Anatomical Region Laterality Modality Other 08/26/2022 2:20 PM CDT Narrative 08/26/2022 2:20 PM CDT Patient Name: Shabbir Montes Procedure Date: 08/26/2022 2:20 PM Date of : 1955 Admit Type: Outpatient Age: 66 Gender: Male Note Status: Finalized Attending MD: Waqar Flores MD Procedure: Colonoscopy Indications: Screening for colorectal malignant neoplasm; previous colon negative in 2008 Providers: Waqar Flores MD, Mita Green Referring MD: Dillon Dodd Medicines: Midazolam 3 mg IV, Fentanyl 75 micrograms IV, CO2 Complications: No immediate complications. Estimated blood loss: Minimal. Procedure: After I obtained informed consent, the scope was passed under direct vision. Throughout the procedure, the patient's blood pressure, pulse, and oxygen saturations were monitored continuously. The [id number] was introduced through the anus and advanced to 3 cm into the ileum. The colonoscopy was performed without difficulty. The patient tolerated the procedure well. The quality of the bowel preparation was adequate to identify polyps 6 mm and larger in size. The terminal ileum, ileocecal valve, appendiceal orifice, and rectum were photographed. Findings: The perianal and digital rectal examinations were normal. Normal mucosa was found in the entire colon. The terminal ileum appeared normal. Non-bleeding internal hemorrhoids were found during retroflexion. The hemorrhoids were small. A 10 mm polyp was found in the proximal ascending colon. The polyp was flat. The polyp was removed with a saline injection-lift technique using a cold snare. Resection and retrieval were complete. Estimated blood loss was minimal. Verification of patient identification for the specimen was done by the physician and nurse using the patient's name and date. Three flat polyps were found in the transverse colon and mid ascending colon. The polyps were 3 to 8 mm in size. These polyps were removed with a cold snare. Resection and retrieval were complete. Estimated blood loss was minimal. Verification of patient identification for the specimen was done by the physician and nurse using the patient's name and date. The exam was otherwise without abnormality on direct and retroflexion views. A single small angioectasia without bleeding was found in the cecum. Moderate Sedation: Moderate (conscious) sedation was administered by the endoscopy nurse and supervised by the endoscopist. The following parameters were monitored: oxygen saturation, heart rate, blood pressure, and response to care. Total physician intraservice time was 11 minutes. This time is the duration from the initial medication administration until the acupressurist assists with initial maneuvers (biopsy / polypectomy / etc.), or if no maneuvers are performed, until the endoscopist leaves the room. Impression: Four polyps identified and removed. One polyp was 1 cm in size and the other three were small. - Normal mucosa in the entire examined colon. - The examined portion of the ileum was normal. - Non-bleeding internal hemorrhoids. - One 10 mm polyp in the proximal ascending colon, removed using injection-lift and a cold snare. Resected and retrieved. - Three 3 to 8 mm polyps in the transverse colon and in the mid ascending colon, removed with a cold snare. Resected and retrieved. - The examination was otherwise normal on direct and retroflexion views. - A single non-bleeding colonic angioectasia. Recommendation: - Discharge patient to home. - High fiber diet. - Continue present medications. - Await pathology results. - Repeat colonoscopy in three to ten years, for surveillance based on pathology results. - Return to primary care physician. Procedure Code(s): --- Professional --- 06077, Colonoscopy, flexible; with removal of tumor(s), polyp(s), or other lesion(s) by snare technique 22167, Colonoscopy, flexible; with directed submucosal injection(s), any substance G0500, Moderate sedation services provided by the same physician or other qualified health housekeeper child care performing a gastrointestinal endoscopic service that sedation supports, requiring the presence of an independent trained observer to assist in the monitoring of the patient's level of consciousness and physiological status; initial 15 minutes of intra-service time; patient age 5 years or older (additional time may be reported with 57817, as appropriate) Diagnosis Code(s): --- Professional --- K63.5, Polyp of colon Z12.11, Encounter for screening for malignant neoplasm of colon K64.8, Other hemorrhoids CPT copyright 2020 [employer]. All rights reserved. The codes documented in this report are preliminary and upon piecer up review may be revised to meet current compliance requirements. Waqar Flores MD 08/26/2022 3:26:24 PM Number of Addenda: 0 Note Initiated On: 08/26/2022 2:20 PM Endoscopy Report Procedure Note Waqar Flores MD - 08/26/2022 Patient Name: Shabbir [place] Procedure Date: 08/26/2022 2:20 PM Date of : 1955 Admit Type: Outpatient Age: 66 Gender: Male Note Status: Finalized Attending MD: Waqar Flores MD Procedure: Colonoscopy Indications: Screening for colorectal malignant neoplasm; previous colon negative in 2008 Providers: Waqar Flores MD, Mita Green Referring MD: Dillon Dodd Medicines: Midazolam 3 mg IV, Fentanyl 75 micrograms IV, CO2 Complications: No immediate complications. Estimated blood loss: Minimal. Procedure: After I obtained informed consent, the scope was passed under direct vision. Throughout the procedure, the patient's blood pressure, pulse, and oxygen saturations were monitored continuously. The [id number] was introduced through the anus and advanced to 3 cm into the ileum. The colonoscopy was performed without difficulty. The patient tolerated the procedure well. The quality of the bowel preparation was adequate to identify polyps 6 mm and larger in size. The terminal ileum, ileocecal valve, appendiceal orifice, and rectum were photographed. Findings: The perianal and digital rectal examinations were normal. Normal mucosa was found in the entire colon. The terminal ileum appeared normal. Non-bleeding internal hemorrhoids were found during retroflexion. The hemorrhoids were small. A 10 mm polyp was found in the proximal ascending colon. The polyp was flat. The polyp was removed with a saline injection-lift technique using a cold snare. Resection and retrieval were complete. Estimated blood loss was minimal. Verification of patient identification for the specimen was done by the physician and nurse using the patient's name and date. Three flat polyps were found in the transverse colon and mid ascending colon. The polyps were 3 to 8 mm in size. These polyps were removed with a cold snare. Resection and retrieval were complete. Estimated blood loss was minimal. Verification of patient identification for the specimen was done by the physician and nurse using the patient's name and date. The exam was otherwise without abnormality on direct and retroflexion views. A single small angioectasia without bleeding was found in the cecum. Moderate Sedation: Moderate (conscious) sedation was administered by the endoscopy nurse and supervised by the endoscopist. The following parameters were monitored: oxygen saturation, heart rate, blood pressure, and response to care. Total physician intraservice time was 11 minutes. This time is the duration from the initial medication administration until the acupressurist assists with initial maneuvers (biopsy / polypectomy / etc.), or if no maneuvers are performed, until the endoscopist leaves the room. Impression: Four polyps identified and removed. One polyp was 1 cm in size and the other three were small. - Normal mucosa in the entire examined colon. - The examined portion of the ileum was normal. - Non-bleeding internal hemorrhoids. - One 10 mm polyp in the proximal ascending colon, removed using injection-lift and a cold snare. Resected and retrieved. - Three 3 to 8 mm polyps in the transverse colon and in the mid ascending colon, removed with a cold snare. Resected and retrieved. - The examination was otherwise normal on direct and retroflexion views. - A single non-bleeding colonic angioectasia. Recommendation: - Discharge patient to home. - High fiber diet. - Continue present medications. - Await pathology results. - Repeat colonoscopy in three to ten years, for surveillance based on pathology results. - Return to primary care physician. Procedure Code(s): --- Professional --- 71944, Colonoscopy, flexible; with removal of tumor(s), polyp(s), or other lesion(s) by snare technique 19116, Colonoscopy, flexible; with directed submucosal injection(s), any substance G0500, Moderate sedation services provided by the same physician or other qualified health housekeeper child care performing a gastrointestinal endoscopic service that sedation supports, requiring the presence of an independent trained observer to assist in the monitoring of the patient's level of consciousness and physiological status; initial 15 minutes of intra-service time; patient age 5 years or older (additional time may be reported with 77954, as appropriate) Diagnosis Code(s): --- Professional --- K63.5, Polyp of colon Z12.11, Encounter for screening for malignant neoplasm of colon K64.8, Other hemorrhoids CPT copyright 2020 [employer]. All rights reserved. The codes documented in this report are preliminary and upon piecer up review may be revised to meet current compliance requirements. Waqar Flores MD 08/26/2022 3:26:24 PM Number of Addenda: 0 Note Initiated On: 08/26/2022 2:20 PM Endoscopy Report us Dillon Dodd PA-C ET GI PROCEDURE ORDERABLES F inal Result from Last 3 Months or Most Recently Relevant to Health Maintenance Insurance [address] [address] [place] [address] [address] [address] [place] [address] [facility] MEDICARE ADVANTAGE [facility] [address] [address] [place] [address]
--- OUTSIDE RECORDS SUMMARY | 2024-12-04 14:10 | XMS_ITS | Encounter Summary ---
Author Organization [employer] Address [address] [place] [address] Care Team Providers Care Cellar Packer Name Role Phone Renea Vega PA-C Primary Care Provi camiol Emely Fernández RN Unavailable Unavailable Leann Arcos DO Unavailable [phone] Xiang Field PA-C Unavailable [phone] Xiang Field PA-C Unavailable Xiang Field PA-C Primary Care Provider Roberta Kirkland [facility] Unavailable Roberta Kirkland [facility] Unavailable [phone] Marcy Alvarez CHW Unavailable [phone] Jailyn Weeks TOY MECHANIC Unavailable Ivet Palmer [facility] Unavailable Unavailabl Marcy Montero CHW Unavailable [phone] Jailyn Burch [facility] Unavailable Jaida Chávez Unavailable Unavailable David Mccord MD Unavailable Encounter Details Date Type Department Care Team (Late st Contact Info) Description 01/10/2024 [facility] [address] [phone] Xiang Field PA-C [address] [facility], [address] [place], [place] [id number] Social History Tobacco Use Types Packs/Day Years Used Date Smoking Tobacco: Former Cigarettes Smokeless Tobacco: Never Comments:2-3 cigs. per day a s of 01/2014 Alcohol Use Standard Drinks/Week Comments Yes 0 (1 standard drink = 0.6 oz pur e alcohol) pint every other day Social Connection and Isolation Panel [NHANES] A nswer Date Recorded Frequency of Communication with Friends and Fami ly Not on file 01/06/2024 How often do you get together with friends or re latives? Once a week 01/06/2024 Attends Confucianism Services Not on file 01/05 Active Member of Clubs or Organizations Not on f ile 01/06/2024 Attends Club or Organization Meetings Not on sg e 01/06/2024 Marital Status Not on file 01/06/2024 PHQ-2 Answer Date Recorded PHQ-2 Score 4 01/10/2024 [facility] of Occupat ional Health - Occupational Stress Questionnaire Answer Date Recorded Do you feel stress - tense, restless, nervous, or anxious, or unable to sleep at night because your mind is troubled all the time - these days? To some extent 01/06/2024 Exercise Vital Sign Answer Date Recorde d On average, how many days pe r week do you engage in moderate to strenuous exercise (like a brisk walk)? 0 days 01/06/2024 On average, how many minutes do you engage in exercise at this level? 0 min 01/06/2024 Adolescent Education Answer Date Record ed Getting School Help Needed Not on file 12/07 Food Insecurity Answer Date Recorded Within the past 12 months, d id you worry that your food would run out before you got money to buy more? No 01/06/2024 Within the past 12 months, d id the food you bought just not last and you didn t have money to get more? No 01/06/2024 Housing Stability Answer Date Recorded Do you have housing? (Housin g is defined as stable permanent housing and does not include staying outside in a car, in a tent, in an abandoned building, in an overnight retirement, or couch-surfing.) No 01/06/2024 Are you worried about losing your housing? No 01/06/2024 Financial Resource Strain Answer Date R ecorded Within the past 12 months, h ave you or your family members you live with been unable to get utilities (heat, electricity) when it was really needed? No 01/06/2024 Transportation Needs Answer Date Record ed Within the past 12 months, h as lack of transportation kept you from medical appointments, getting your medicines, non-medical meetings or appointments, work, or from getting things that you need? No 01/06/2024 Sex and Gender Information Value Date Recorded Sex Assigned at Male 06/28/2024 4:08 PM CDT Legal Sex Male 3:30 AM SHOE WORKER Gender Identity Male 06/28/2024 4:08 PM CDT [...] Assessment Noted Time PHQ-9 Depression Total Score: 10 024 10:35 AM SHOE WORKER documented as of this encounter Care Teams Cellar Packer Relationship Specialty Start Date End Date Renea Vega PA-C PCP - General Physician Plastic Top Assembler 09/19/13 01/19/24 Xiang Field PA-C [address] [address] PCP - General Physician Plastic Top Assembler 01/20/24 11/29/24 Emely Fernández, RN [facility] 04/24/15 Leann Arcos DO [address] [place] [address] Physician Neurology 11/23/23 Xiang Field PA-C [address] [facility] [address] [place] [address] Physician Plastic Top Assembler Physician Plastic Top Assembler 11/23/23 Xiang Field PA-C [address] [facility] [address] [place] [address] Assigned PCP 12/29/23 Roberta Kirkland [facility] [address] [id number] Pharmacist Pharmacist 01/26/24 [facility] [place] [id number] [place], [place] [phone] Assigned MTM Pharmacist 01/29/24 Marcy Alvarez CHW Community Health Worker 04/20/2404/21 Jailyn Weeks TOY MECHANIC [facility] 04/21/24 Ivet Palmer LICSW [facility] 04/28/2407/07 Marcy Alvarez CHW Community Health Worker 04/28/2405/22 Jailyn Burch, [facility] [address] [place], [place] [phone] Assigned Behavioral Health Provider 04/30/24 Jaida Chávez Community Health Worker 05/22/2407/07 David Mccord MD [address] [address] Assigned Neuroscience Provider 05/28/24 documented as of this encounter
--- OUTSIDE RECORDS SUMMARY | 2024-12-04 14:10 | XMS_ITS | Encounter Summary ---
Author Organization [employer] Address [address], [place] [address] Care Team Providers Care Stone Lathe Operator Name Role Phone Unavailable Primary Care Provider Unavailabl e Reason for Visit * Reason Comments Refill traZODone (DESYREL) 50 MG tablet [Pharmacy Med Name: TRAZODONE 50MG TABLETS] Encounter Details Date Type Department Care Team (Late st Contact Info) Description 11/25/2024 Refill [facility] [address] [facility] [address] [place] [address] [place] [address] [place] [address] Refill (traZODone (DESYREL) 50 MG tablet [Pharmacy Med Name: TRAZODONE 50MG TABLETS]) Social History Tobacco Use Types Packs/Day Years Used Date Smoking Tobacco: Former Cigarettes Smokeless Tobacco: Never Comments:cutting down and [...] on file documented as of this encounter Nursing Notes * Katja uHa - 11/30/2024 9:56 AM CDT Medication Refill - Due for Visit Medication still pending, patient is due to be seen in the next 30 days. Called patient, was: unable to reach patient. 2nd call attempted. Unsuccessful in reaching patient. Frontline Action: Route to clinician identified in nursing documentation below. Clinician Action: Unsuccessful in reaching patient to schedule, requests refill. Please determine whether refill is appropriate. Recommend using ???Refuse All?? quick action to address request. * Lyudmila Mccoy - 11/28/2024 3:27 PM CDT Medication Refill - Due for Visit Medication still pending, patient is due to be seen in the next 30 days. Called patient, was: unable to reach patient. 1st call attempted. Left message to call back. Scheduling Action: Patient needs to schedule an appointment in the next 30 days. If able to schedule, please document date of appointment and route to clinician/pool identified in nursing documentation below. * Lilly Alves RN - 11/28/2024 3:15 PM CDT Further Assistance Needed on Refill from Java User Interface Developer Patient is due for Qualifying Visit or Qualifying Visit and lab(s). Medication is still pending. Patient is due for an Office/Video Visit in the next 30 days. Call Patient and document using .[email or web address]. After attempting to schedule patient: Please route to: No primary care provider on file. Requested Prescriptions Pending Prescriptions Disp Refills traZODone (DESYREL) 50 MG tablet [Pharmacy Med Name: TRAZODONE 50MG TABLETS] 180 Tablet 0 Sig: TAKE 1 TO 2 TABLETS BY MOUTH AT NIGHT FOR SLEEP documented in this encounter Plan of Treatment Not on file documented as of this encounter Visit Diagnoses Diagnosis Chronic insomnia Insomnia, unspecified documented in this encounter
--- OUTSIDE RECORDS SUMMARY | 2024-12-04 14:10 | XMS_ITS | Encounter Summary ---
Author Organization [employer] Address [address] [place] [address]. [place] [address] Care Team Providers Care Claims Director Name Role Phone Emely Fernández RN Unavailable Unavailable Leann Arcos DO Unavailable [phone] Xiang Field PA-C Unavailable [phone] Xiang Field PA-C Unavailable [phone] Xiang Field PA-C Primary Care Provider Roberta Kirkland [facility] Unavailable Roberta Kirkland [facility] Unavailable Jailyn Burch [facility] Unavailable David Mccord MD Unavailable Encounter Details Date Type Department Care Team (Late st Contact Info) Description 09/21/2024 [facility] [address] [address] Harinder Coffey Social History Tobacco Use Types Packs/Day Years [...] re latives? Once a week 01/06/2024 Attends Protestant Services Not on file 01/05 Active Member of Clubs or Organizations Not on f ile 01/06/2024 Attends Club or Organization Meetings Not on sg e 01/06/2024 Marital Status Not on file 01/06/2024 PHQ-2 Answer Date Recorded PHQ-2 Score 1 09/25/2024 [facility] - Occupational Stress [...] Answer Date Recorded Do you have housing? (Ksenia g is defined as stable permanent housing and does not include staying outside in a car, in a tent, in an abandoned building, in an overnight skilled nursing, or couch-surfing.) No 01/06/2024 Are you worried [...] getting things that you need? No 01/06/2024 Interpersonal Safety Answer Date Record ed Do you feel physically and e motionally safe where you currently live? Yes 07/04/2024 Within the past 12 months, h ave you been hit, slapped, kicked or otherwise physically hurt by someone? No 07/04/2024 Within the past 12 months, h ave you been humiliated or emotionally abused in other ways by your partner or ex-partner? 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 CALLER Gender Identity Male 06/28/2024 4:08 PM CDT [...] filedocumented in this encounter Additional Health Concerns Active Problems Noted Date Diagnosed Date Mental Health Symptoms Need Improvement 04/28/19 Assessment Noted Time PHQ-9 Depression Total Score: 12 025 8:07 AM CDT documented as of this encounter Care Teams Claims Director Relationship Specialty Start Date End Date Xiang Field PA-C [address] [address] PCP - General Physician Production Machine Tender 01/20/24 11/29/24 Emely Fernández, RN Clinic Real Estate Teacher Internal Medicine 04/24/15 Leann Arcos DO [address] [place] [address] Physician Neurology 11/23/23 Xiang Field PA-C [address], [address] [place] [address] Physician Production Machine Tender Physician Production Machine Tender 11/23/23 Xiang Field PA-C [address], [facility] [address] [place] [address] Assigned PCP 12/29/23 Roberta Kirkland [facility] [address] [place], [place] [id number] Pharmacist Pharmacist 01/26/24 Roberta Kirkland [facility] [address] [place], [place] [id number] Assigned MTM Pharmacist 01/29/24 Jailyn Burch, [facility] BEHAVIORAL HEALTH [address] [place], [place] [id number] Assigned Behavioral Health Provider 04/30/24 David Mccord MD [address] [facility] [address] [place] [address] Assigned Neuroscience Provider 05/28/24 documented as of this encounter
--- OUTSIDE RECORDS SUMMARY | 2024-12-04 14:10 | XMS_ITS | Clinical Summary ---
Author Organization [employer] Address [address] [place] [address] Care Team Providers Care Trade Facilitator Name Role Phone Lupe Vincent MD Primary Care Provider Allergies No known active allergies Medications buPROPion (WELLBUTRIN XL) 150 mg Extended-Release tabletIndication s:Severe episode of recurrent major depressive disorder, without psychotic features (HC) Take 1 Tablet (150 mg) by mouth once daily in the morning. 90 Tablet 5 Active atorvastatin (LIPITOR) 40 mg tabletIndication s:Acute CVA (cerebrovascular accident) (HC) Take 1 Tablet (40 mg) by mouth once daily with evening meal. 90 Tablet 3 5 Active aspirin chewable 81 mg tabletIndication s:Acute CVA (cerebrovascular accident) (HC) Chew 1 Tablet (81 mg) by mouth once daily with a meal. 90 Tablet 3 5 Active traZODone (DESYREL) 50 mg tabletIndication s:Insomnia, idiopathic Take 1 Tablet (50 mg) by mouth at bedtime if needed for Sleep. 90 Tablet 1 5 Active venlafaxine (EFFEXOR XR) 150 mg Extended-Release capsuleIndicatio ns:Severe episode of recurrent major depressive disorder, without psychotic features (HC) Take 1 Capsule (150 mg) by mouth once daily in the afternoon. 90 Capsule 3 5 Active busPIRone (BUSPAR) 5 mg tabletIndication s:Major depressive disorder, recurrent episode, unspecified Take 1 tablet by mouth 3 times daily. 90 tablet 1 3 12/02/19 25 Discontinu ed(*Medica tion adjustment ) venlafaxine (EFFEXOR) 37.5 mg tablet TAKE 1 TABLET BY MOUTH TWICE DAILY 60 tablet 0 3 12/02/19 25 Discontinu ed(*Medica tion adjustment ) venlafaxine (EFFEXOR) 37.5 mg tablet Take 1 tablet by mouth 2 times daily. 60 tablet 1 3 12/02/19 25 Discontinu ed(*Medica tion adjustment ) atorvastatin (LIPITOR) 40 mg tablet Take 40 mg by mouth. 3 12/02/19 Discontinu ed(Reorder (E-cancel not sent)) venlafaxine (EFFEXOR XR) 150 mg Extended-Release capsule Take 150 mg by mouth once daily in the afternoon. 4 12/02/19 25 Discontinu ed(Reorder (E-cancel not sent)) traZODone (DESYREL) 50 mg tablet Take 50 mg by mouth at bedtime if needed for Sleep. 3 12/02/19 25 Discontinu ed(Reorder (E-cancel not sent)) Active Problems Problem Noted Date Diagnosed Date Personal history of nicotine dependence 12/02/19 Primary hypertension 11/28/2024 Overview (11/28/2024): Per notes from 2022: previously prescribed lsinopril, but had normal values during office visit, did not restart medication. Hyperlipidemia, unspecified 11/28/2024 Overview (11/28/2024): Per notes from 2022: on atrovastatin 40mg daily Last lipid panel 2022 Adenomatous polyp of ascending colon 11/28/2024 Overview (11/28/2024): Per colonoscopy from 08/26/2022: FINAL DIAGNOSIS A. Colon, ascending, polypectomy: Tubular adenoma fragments B. Colon, transverse, polypectomy: Sessile serrated adenoma Repeat colonoscopy in 3 years (08/2025) Acute CVA (cerebrovascular accident) 03/27/2022 Right hand weakness 03/27/2022 Slurred speech 03/27/2022 Non-recurrent unilateral ing uinal hernia without obstruction or gangrene 02/11/2017 Vitamin D deficiency 04/05/2014 Overview (11/28/2024): Problem list name updated by automated process. Provider to review Generalized anxiety disorder 09/26/2013 Overview (11/28/2024): Diagnosis updated by automated process. Provider to review and confirm. Other hammer toe (acquired) 05/12/2011 Major depressive disorder, recurrent episode, se zulma 04/22/2011 Overview (12/01/2024): Problem list name updated by automated process. Provider to review Problem list name updated by automated process. Provider to review Resolved Problems Problem Noted Date Diagnosed Date Resolved Date Nicotine dependence 11/15/2012 12/02/19 25 Smoker 11/03/2010 12/01/2024 Encounters Date Type Department Care Team Description 12/01/2024 12:55 PM CDT Office Visit [facility] [address] [place] [address] Lupe Vincent MD Medicare ANNUAL (subsequent) Visit (68 y.o); Establish Care; Immunization/Injectio n 12/01/2024 Travel from Last 3 Months Immunizations Immunization Administration Dates Next Due Influenza, Inactivated IIV3 (Age 65+ Years) Preserv Free 12/01/2024 Tdap 04/29/2021,06/05/2008 Family History Medical History Relation Name Comments Psychiatric illness Brother 1 bryan cooper Good Health Brother 3 Good Health Brother 4 Good Health Father Good Health Maternal Grandmother Good Health Mother Good Health Sister Good Health Son Relation Name Status Comments Brother 1 Alive Brother 2 Alive Brother 3 Alive Brother 4 Alive Father (Age 78) cancer of the neck Maternal Grandmother Alive Mother (Age 81) Sister Alive Son Alive Social History Tobacco Use Types Packs/Day Years Used Date Smoking Tobacco: Former Cigarettes 0.5 35 0 08/06/1989 - 08/06/2024 Smokeless Tobacco: Never Comments:started smoking age 20 Alcohol Use Standard Drinks/Week Comments Yes 0 (1 standard drink = 0.6 oz pur e alcohol) 2 drinks a week PHQ-2 Answer Date Recorded PHQ-2 TOTAL SCORE 4 12/01/2024 Social Connections Answer Date Recorded Do you often feel lonely or isolated from those around you? 0 12/01/2024 Alcohol Use Answer Date Recorded How often do you have a drink containing alcohol ? 1 12/01/2024 How many drinks containing a lcohol do you have on a typical day when you are drinking? 0 12/01/2024 How often do you have five or more drinks on one occasion? 0 12/01/2024 Financial Resource Strain Answer Date R ecorded Difficulty of Paying Living Expenses 3 12/01/2024 Difficulty of Paying Living Expenses Not on file 12/01/2024 Food Insecurity Answer Date Recorded Do you worry your food will run out before you are able to buy more? 1 12/01/2024 Transportation Needs Answer Date Record ed Does lack of transportation keep you from medica l appointments? 1 12/01/2024 Does lack of transportation keep you from work, meetings or getting things that you need? 1 12/01/2024 Housing Stability Answer Date Recorded What is your housing situation today? 1 12/01/2024 Utilities Answer Date Recorded Do you have trouble paying f or utilities (for example, heat, electricity, water, phone)? 1 12/01/2024 Sex and Gender Information Value Date Recorded Sex Assigned at Not on file Legal Sex Male 8:00 AM MEASUREMENT PSYCHOLOGIST Gender Identity Not on file Sexual Orientation Not on file Obstetrics History Last Filed Vital Signs Vital Sign Reading Time Taken Comments Blood Pressure 121/76 12/01/2024 12:47 PM CDT Pulse 54 12/01/2024 12:47 PM CDT Temperature 36.3 C (97.4 F) 04/28/2012 10:07 AM MEASUREMENT PSYCHOLOGIST Respiratory Rate 12 04/28/2012 10:0 7 AM MEASUREMENT PSYCHOLOGIST Oxygen Saturation 98% 12/01/2024 12: 47 PM CDT Inhaled Oxygen Concentration - - Weight 59.3 kg (130 lb 12.8 oz) 025 12:47 PM CDT Height 182.9 cm (6') 12/01/2024 12:47 PM CDT Body Mass Index 17.74 12/01/2024 12:47 PM CDT Plan of Treatment Upcoming Encounters Date Type Department Care Team (Late st Contact Info) Description 12/12/2024 7:30 AM CDT Ancillary Procedure [facility] [address] [place] [address] 12/27/2024 10:00 AM CDT Office Visit [facility] [address] [place] [id number] [facility] [address] [place] [address] 12/29/2024 9:30 AM CDT Office Visit [facility] [address] [place] [address] Lupe Vincent MD [address] [place] [address] 02/05/2025 9:50 AM MEASUREMENT PSYCHOLOGIST Ancillary Procedure [facility] [address] [place] [address] Health Maintenance Due Date Last Done Comments Pneumococcal series for age 50+ (1 of 1 - PCV) 12/23/2007 Zoster (shingles) series for age 50+ (1 of 2) 12/23/2007 RSV vaccine for adults or (1 - Risk 60-74 years 1-dose series) 2017 AAA screening age 65-74 2022 06/22/2011 COVID-19 vaccine series ( season) 2024 07/29/2021, 01/29/2021, 07/03/2020, Additional history exists Colonoscopy through age 75 08/26/202508/26 (Verified in Care Everywhere or Patient Record), 12/23/2007 (Completed outside of [facility]) BMI (ht and wt on same day) for age 18+ 12/01/2025 12/01/2024 Depression screening for age 12+ 12/01/2025 12/01/2024 Medicare Wellness for age 65+ 12/02/2025 12/01/2024 Lipids for age 45-75 12/23/2027 2022 (Verified in Care Everywhere or Patient Record), 01/27/2011, 12/30/2006 (Completed outside of [facility]) Tetanus booster 04/29/2031 04/29/2021, 06/05/2008 Hepatitis C screening for age 18-79 Addressed 12/19/2015 (Verified in Care Everywhere or Patient Record) Overridden with the intention of not completing the topic Influenza Vaccine Completed 12/01/2024 Hepatitis B series for 19+ Aged Out N o longer eligible based on patient's age to complete this topic Procedures Procedure Name Priority Date/Time Associated Diagnosis Comments US AORTA SCREEN (IA) Routine 06/22/2011 7:50 AM CDT Screening for AAA (abdominal aortic aneurysm) LIPID PANEL Routine 01/27/2011 10:27 AM MEASUREMENT PSYCHOLOGIST Lipid screening from Last 3 Months or Most Recently Relevant to Health Maintenance Results * US AAA SCREEN (06/22/2011 7:50 AM CDT) Anatomical Region Laterality Modality Abdomen, AORTA Ultrasound Impressions 06/22/2011 11:44 AM CDT Negative for abdominal aortic aneurysm. No diagnostic abnormality. Narrative 06/22/2011 11:44 AM CDT ABDOMINAL AORTIC ULTRASOUND CLINICAL HISTORY: Screening. FINDINGS: Maximum dimension of the proximal, mid and distal abdominal aorta is 2.3, 2.2 and 2.0 cm respectively. Common iliac artery measurements are 1.1 to 1.3 cm. Procedure Note Bob Fall MD - 06/22/2011 ABDOMINAL AORTIC ULTRASOUND CLINICAL HISTORY: Screening. FINDINGS: Maximum dimension of the proximal, mid and distal abdominalaorta is 2.3, 2.2 and 2.0 cm respectively. Common iliac artery measurements are 1.1 to 1.3 cm. IMPRESSION: Negative for abdominal aortic aneurysm. No diagnosticabnormality. us Sarah Gallegos NP US Aaron nal Result * LIPID PANEL (01/27/2011 10:27 AM MEASUREMENT PSYCHOLOGIST) CHOLESTEROL,TOTAL 133 110 - 199 mg/dL [facility] TRIGLYCERIDES 59 40 - 149 mg/dL [facility] HDL CHOLESTEROL 41 >40 mg/dL [facility] CHOL/HDL RATIO 3.24 <4.51 [facility] LDL CHOLESTEROL 80 <131 mg/dL [facility] PATIENT STATUS Fasting [facility] Blood specimen (specimen) BLOOD SPECIMEN / Unknown 01/27/2011 10:27 AM MEASUREMENT PSYCHOLOGIST 01/27/2011 10:27 AM MEASUREMENT PSYCHOLOGIST us Sarah Gallegos DIRECTOR CHANNEL CHEMISTRY Fi nal Result [facility] INTERNAL ZIP [phone] [address] from Last 3 Months or Most Recently Relevant to Health Maintenance Insurance [facility] [place] [address] Care Teams Trade Facilitator Relationship Specialty Start Date End Date Lupe Vincent MD [address] [place] [address] PCP - General Family Practice 12/01/24
--- OUTSIDE RECORDS SUMMARY | 2024-12-04 14:10 | XMS_ITS | Clinical Summary ---
Author Organization [place] Address [address] [place] [address] Care Team Providers Care Aircraft Systems Repairer Name Role Phone Emely Fernández RN Unavailable Unavailable Leann Arcos DO Unavailable [phone] Xiang Field PA-C Unavailable Xiang Field PA-C Unavailable [phone] Roberta Kirkland [facility] Unavailable [phone] Roberta Kirkland [facility] Unavailable [phone] Jailyn Burch [facility] Unavailable David Mccord MD Unavailable Allergies Active Allergy Reactions Criticality Noted Date Comments Nuts Itching 04/26/2013 Medications atorvastatin (LIPITOR) 40 MG tablet Take 40 mg by mouth daily. 01/02/2024 Active QUEtiapine (SEROQUEL) 50 MG tabletIndicatio ns:Severe episode of recurrent major depressive disorder, without psychotic features (H) Take 0.5 tablets (25 mg) by mouth at bedtime. 30 tablet 2 04/19/2024 Active FLUoxetine (PROZAC) 20 MG capsuleIndicati ons:Severe episode of recurrent major depressive disorder, without psychotic features (H) Take 1 capsule (20 mg) by mouth daily. 60 capsule 5 07/04/2024 Active venlafaxine (EFFEXOR XR) 150 MG 24 hr capsuleIndicati ons:Severe episode of recurrent major depressive disorder, without psychotic features (H),Generalized anxiety disorder TAKE 1 CAPSULE(150 MG) BY MOUTH DAILY AT 2 PM 30 capsule 1 08/25/2024 Active Active Problems Problem Noted Date Diagnosed Date Slurred speech 03/27/2022 Right hand weakness 03/27/2022 Acute CVA (cerebrovascular accident) 03/27/2022 Vitamin D deficiency 04/05/2014 Overview (12/07/2014): Problem list name updated by automated process. Provider to review Generalized anxiety disorder 09/26/2013 Overview (01/07/2015): Diagnosis updated by automated process. Provider to review and confirm. Major depressive disorder, recurrent episode, se zulma 11/15/2012 Overview (12/07/2014): Problem list name updated by automated process. Provider to review CARDIOVASCULAR SCREENING; LDL GOAL LESS THAN 160 11/15/2012 Nicotine dependence 11/15/2012 Encounters Date Type Department Care Team Description 11/30/[address] [address] Xiang Field PA-C OTHER 09/21/2024 MyC Medical Advice [facility] [place] [id number] [place] [phone] Erlinda [place] 09/13/[address] [place] [phone] Xiang Field PA-C Medication Refill from Last 3 Months Immunizations Immunization Administration Dates Next Due COVID-19 MONOVALENT 12+ (Pfizer) 01/29/2021,06/07,06/12/2020 Influenza (High Dose) Trival ent,PF (Fluzone) 11/22/2023 Influenza (IIV3) PF 12/23/2011 Influenza (prior to 2023) 11/27/2010 Influenza Vaccine 65+ (FLUAD) 2022 Influenza Vaccine >6 months,quad, PF ,12/15/2019,12/21/2018,2017,12/19/2015,12/04/2014,12/11/2013,0 11/23/2012 Influenza Vaccine, 6+MO IM (QUADRIVALENT W/PRESERVATIVES) 02/06/2022 Influenza, Split Virus, Triv alent, Pf (Fluzone\Fluarix) 11/27/2010 Pneumococcal 20 valent Conju gate (Prevnar 20) 2022 Pneumococcal 23 valent 04/08/2017,05/23/2009 TDAP (Adacel,Boostrix) 04/29/2021,06/05/2008 Family History Medical History Relation Comments Cerebrovascular Disease Father 2 Relation Status Comments Brother Alive Father 1 Father 2 Maternal Grandfather Maternal Grandmother Mother Paternal Grandfather Paternal Grandmother Sister Alive Son Alive Social History Tobacco Use Types Packs/Day Years Used Date Smoking Tobacco: Former Cigarettes Smokeless Tobacco: Never Tobacco Cessation:Counseling Given: Not Answered Comments:2-3 cigs. per day as of 01/2014 Alcohol Use Standard Drinks/Week Comments Yes 0 (1 standard drink = 0.6 oz pur e alcohol) pint every other day Social Connection and Isolation Panel [NHANES] A nswer Date Recorded Frequency of Communication with Friends and Fami ly Not on file 01/06/2024 How often do you get together with friends or re latives? Once a week 01/06/2024 Attends Sikh Services Not on file 01/05 Active Member of Clubs or Organizations Not on f ile 01/06/2024 Attends Club or Organization Meetings Not on sg e 01/06/2024 Marital Status Not on file 01/06/2024 PHQ-2 Answer Date Recorded PHQ-2 Score 1 09/25/2024 [facility] [place] of Occupat ional Health - Occupational Stress [...] Date Recorded Do you have housing? (Ksenia joya is defined as stable permanent housing and does not include staying outside in a car, in a tent, in an abandoned building, in an overnight residential, or couch-surfing.) No 01/06/2024 Are you worried [...] PM CDT Legal Sex Male 3:30 AM PHONE OPERATOR Gender Identity Male 06/28/2024 4:08 PM CDT Sexual Orientation Straight 06/28/2024 4: 08 PM CDT Last Filed Vital Signs Vital Sign Reading Time Taken Comments Blood Pressure 124/80 07/04/2024 8:16 AM CDT Pulse 55 07/04/2024 8:16 AM CDT Temperature 36.3 C (97.3 F) 07/04/2024 8:16 AM CDT Respiratory Rate 18 07/04/2024 8:16 AM CDT Oxygen Saturation 98% 07/04/2024 8:16 AM CDT Inhaled Oxygen Concentration - - Weight 64.5 kg (142 lb 3.2 oz) 07/04/2024 8:16 A M CDT Height 185 cm (6' 0.84) 07/04/2024 8:16 AM CDT Body Mass Index 18.85 07/04/2024 8:16 AM CDT Plan of Treatment Health Maintenance Due Date Last Done Comments CT COLONOGRAPHY 1955 FIT 1955 FLEX SIG 1955 sDNA (Cologuard) 1955 ZOSTER VACCINE (1 of 2) 12/23/2007 RSV VACCINE (1 - Risk 60-74 years 1-dose series) 2017 AORTIC ANEURYSM SCREENING (SYSTEM ASSIGNED) 2022 DEPRESSION 12 MO INDEX REPEAT PHQ-9 10/09/2024 09/25/2024, 07/04/2024, 05/09/2024, Additional history exists COVID-19 VACCINE ( season) 2024 07/29/2021, 01/29/2021, 07/03/2020, Additional history exists INFLUENZA VACCINE (#1) 2024 , 2022, 02/06/2022, Additional history exists ANNUAL REVIEW OF HM ORDERS 11/21/2024 11/22/2023 CMP 01/09/2025 01/10/2024, 03/09, 12/19/2015, Additional history exists FALL RISK ASSESSMENT 01/09/2025 01/10/2024, 11/22/19 24 LIPID 01/09/2025 01/10/2024, 04/09, 03/28/2022, Additional history exists MEDICARE ANNUAL WELLNESS VISIT 01/09/2025 01/10/2024, 2022, 12/19/2015 LUNG CANCER SCREENING 01/31/2025 02/01/2024 PHQ-9 03/28/2025 09/25/2024, 06/07, 05/09/2024, Additional history exists COLONOSCOPY 08/26/2025 08/26/2022, 12/08, 03/08/2007 COLORECTAL CANCER SCREENING 08/26/2025 DIABETES SCREENING 01/09/2027 01/10/2024, 0 05/03/2023, 03/28/2022, Additional history exists ADVANCE CARE PLANNING 01/09/2029 01/10/2024 DTAP/TDAP/TD VACCINE (3 - Td or Tdap) 04/29/2031 04/29/2021, 06/05/2008 HEPATITIS C SCREENING Completed 12/19/2015 DEPRESSION ACTION PLAN Completed 6, 11/01/2014, 09/19/2013 PNEUMOCOCCAL VACCINE 50+ YEARS Completed 2022, 04/08/2017, 05/23/2009 HPV VACCINE (No Doses Required) Completed MENINGITIS VACCINE Aged Out No longer eligible based on patient's age to complete this topic Goals Goal Patient Goal Type Associated Problems Recent Progress Patient-Stated? Author Medical General Yes Emely Fernández, RN Note: Patient states that he understands to seek emergency medical eval if he has suicidal ideation so that he is safe. As of today's date 04/24/2015 goal is met at 51 - 75%. Goal Status: Active Procedures Procedure Name Priority Date/Time Associated Diagnosis Comments CT CHEST LUNG CANCER SCREEN LOW DOSE WITHOUT Routine 02/01/2024 10:13 AM PHONE OPERATOR Tobacco dependence in remission Personal history of nicotine dependence LIPID REFLEX TO DIRECT LDL PANEL Routine 01/10/2024 11:38 AM PHONE OPERATOR Encounter for Medicare annual wellness exam COMPREHENSIVE METABOLIC PANEL Routine 01/10/2024 11:38 AM PHONE OPERATOR Encounter for Medicare annual wellness exam COLONOSCOPY - HIM SCAN Routine 08/26/2022 HEPATITIS C ANTIBODY Routine 12/19/2015 6:32 PM CDT Need for hepatitis C screening test from Last 3 Months or Most Recently Relevant to Health Maintenance Results * CT Chest Lung Cancer Screen Low Dose Without (02/01/2024 10:13 AM PHONE OPERATOR) Anatomical Region Laterality Modality Chest, SUBRAD CT BODY, UMP CT CHEST, RAD CT Computed Tomography 02/01/2024 10:1 3 AM PHONE OPERATOR Impressions 02/04/2024 12:41 PM PHONE OPERATOR IMPRESSION: 1. Negative for lung cancer screening purposes. LungRADS CATEGORY: 1 : Negative. RADIOLOGIST RECOMMENDATION(S): Continue annual screening with low-dose CT chest in 12 months. Narrative 02/04/2024 12:41 PM PHONE OPERATOR EXAM: LOW DOSE LUNG CANCER SCREENING CT CHEST LOCATION: [facility] DATE: 02/01/2024 INDICATION: Lung cancer screening. History of smoking. High risk patient. COMPARISON: None. TECHNIQUE: Low-dose lung cancer screening non-contrast CT chest. Dose reduction techniques were used. Images assessed using LungRADS 2021 criteria. FINDINGS: NODULES: None. LUNGS AND PLEURA: Mild basilar atelectasis. MEDIASTINUM: No adenopathy. Nonaneurysmal aorta. Normal heart size. CORONARY ARTERY CALCIFICATION: Mild. LIMITED UPPER ABDOMEN: Nothing acute. MUSCULOSKELETAL: Bony demineralization. Xiang Field PA-C [facility] CT ORDERABLES Final Result * (ABNORMAL) Lipid panel reflex to direct LDL Fasting (01/10/2024 11:38 AM PHONE OPERATOR) Cholesterol 170 <200 mg/dL 01/10/2024 5:55 PM PHONE OPERATOR [facility] Triglycerides 69 <150 mg/dL 01/10/2024 5:55 PM PHONE OPERATOR [facility] Direct Measure HDL 39(L) >=40 mg/dL 01/10/2024 5:55 PM PHONE OPERATOR [facility] LDL Cholesterol Calculated 117(H) <100 mg/dL 01/10/2024 5:55 PM PHONE OPERATOR [facility] Non HDL Cholesterol 131(H) <130 mg/dL 01/10/2024 5:55 PM PHONE OPERATOR [facility] Patient Fasting > 8hrs? No 01/10/2024 5:55 PM PHONE OPERATOR [facility] Blood BLOOD SPECIMEN / Unknown Venipuncture / Unknown 01/10/2024 11:38 AM PHONE OPERATOR 01/10/2024 11:38 AM PHONE OPERATOR Narrative [facility] - 01/10/2024 5:55 PM PHONE OPERATOR Cholesterol Desirable: < 200 mg/dL Borderline High: 200 - 239 mg/dL High: >= 240 mg/dL Triglycerides Normal: < 150 mg/dL Borderline High: 150 - 199 mg/dL High: 200-499 mg/dL Very High: >= 500 mg/dL Direct Measure HDL Female: >= 50 mg/dL Male: >= 40 mg/dL LDL Cholesterol Desirable: < 100 mg/dL Above Desirable: 100 - 129 mg/dL Borderline High: 130 - 159 mg/dL High: 160 - 189 mg/dL Very High: >= 190 mg/dL Non HDL Cholesterol Desirable: < 130 mg/dL Above Desirable: 130 - 159 mg/dL Borderline High: 160 - 189 mg/dL High: 190 - 219 mg/dL Very High: >= 220 mg/dL Xiang Field PA-C LAB - BLOOD ORDERABLES Final Result [facility] Lab [address] [facility], [address] [place] [id number] * COMPREHENSIVE METABOLIC PANEL (01/10/2024 11:38 AM PHONE OPERATOR) Sodium 137 135 - 145 mmol/L 01/10/2024 5:55 PM PHONE OPERATOR [facility] Potassium 3.9 3.4 - 5.3 mmol/L 01/10/2024 5:55 PM PHONE OPERATOR [facility] Carbon Dioxide (CO2) 25 22 - 29 mmol/L 01/10/2024 5:55 PM PHONE OPERATOR [facility] Anion Gap 12 7 - 15 mmol/L 01/10/2024 5:55 PM PHONE OPERATOR [facility] Urea Nitrogen 10.7 8.0 - 23.0 mg/dL 01/10/2024 5:55 PM PHONE OPERATOR [facility] Creatinine 0.78 0.67 - 1.17 mg/dL 01/10/2024 5:55 PM PHONE OPERATOR [facility] GFR Estimate >90 >60 mL/min/1.7 3m2 01/10/2024 5:55 PM PHONE OPERATOR [facility] Comment:eGFR calculated usin 2020 CKD-EPI equation. Calcium 9.0 8.8 - 10.4 mg/dL 01/10/2024 5:55 PM PHONE OPERATOR [facility] Comment:Reference intervals for this test were updated on 09/21/2023 to reflect our healthy population more accurately. There may be differences in the flagging of prior results with similar values performed with this method. Those prior results can be interpreted in the context of the updated reference intervals. Chloride 100 98 - 107 mmol/L 01/10/2024 5:55 PM PHONE OPERATOR [facility] Glucose 73 70 - 99 mg/dL 01/10/2024 5:55 PM PHONE OPERATOR [facility] Alkaline Phosphatase 85 40 - 150 U/L 01/10/2024 5:55 PM PHONE OPERATOR [facility] AST 17 0 - 45 U/L 01/10/2024 5:55 PM PHONE OPERATOR [facility] ALT 12 0 - 70 U/L 01/10/2024 5:55 PM PHONE OPERATOR [facility] Protein Total 6.7 6.4 - 8.3 g/dL 01/10/2024 5:55 PM PHONE OPERATOR [facility] Albumin 4.2 3.5 - 5.2 g/dL 01/10/2024 5:55 PM PHONE OPERATOR [facility] Bilirubin Total 0.2 <=1.2 mg/dL 01/10/2024 5:55 PM PHONE OPERATOR [facility] Patient Fasting > 8hrs? No 01/10/2024 5:55 PM PHONE OPERATOR [facility] Blood BLOOD SPECIMEN / Unknown Venipuncture / Unknown 01/10/2024 11:38 AM PHONE OPERATOR 01/10/2024 11:38 AM PHONE OPERATOR Xiang Field PA-C LAB - BLOOD ORDERABLES Final Result [facility] [address] [facility], [address] [place] [address], [facility] * Colonoscopy - HIM Scan (08/26/2022) Narrative Gricelda Robert - 08/26/2022 See Care Everywhere- [facility] Provider Outside PROCEDURES Final Result * Hepatitis C antibody (12/19/2015 6:32 PM CDT) Hepatitis C Antibody Nonreactive Assay performance characteristics have not been established for newborns, infants, and children NR [facility] Blood specimen (specimen) 12/19/2015 6:32 PM CDT 12/19/2015 6:33 PM CDT us Renea Vega PA-C LAB - BLOOD ORDERAB LES Final Result [facility] [address] [place] [address] from Last 3 Months or Most Recently Relevant to Health Maintenance Additional Health Concerns Active Problems Noted Date Diagnosed Date Mental Health Symptoms Need Improvement 04/28/19 25 Insurance [employer] MEDICARE ADVANTAGE [employer] MEDICARE ADVANTAGE [facility] MEDICARE REPLMT * Guarantor: Shabbir Montes Account Type Relation to Patient Date of Phone Billing Address Medication Therapy Self 1955 [address] [id number] [employer] MEDICARE ADVANTAGE Advance Directives For more information, please contact: [phone] * Full Code (Latest Code Status on File) Date Activated Date Inactivated Comments 03/27/2022 6:45 PM 03/28/2022 6:27 PM All basic an d advanced life-sustaining interventions are performed as appropriate Question Answer Comments Code status determined by: Discussion with cary nt/ legal decision maker Care Teams Aircraft Systems Repairer Relationship Specialty Start Date End Date Emely Fernández, RN Clinic Traffic Circuit Engineer Internal Medicine 04/24/15 Leann Arcos DO [address] [place] [address] Physician Neurology 11/23/23 Xiang Field PA-C [address] [place] [address] Physician Potato Pancake Frier Physician Potato Pancake Frier 11/23/23 Xiang Field PA-C [address] [facility] [address] [place] [address] Assigned PCP 12/29/23 Roberta Kirkland [facility] [id number] [place], [place] [address] Pharmacist Pharmacist 01/26/24 Roberta Kirkland [facility] [id number] [place], [place] [address] Assigned MTM Pharmacist 01/29/24 Jailyn Burch, [facility] [address] [facility], [facility] [address] [place], [place] [address] Assigned Behavioral Health Provider 04/30/24 David Mccord MD [address] [facility] [place] [address] Assigned Neuroscience Provider 05/28/24
--- OUTSIDE RECORDS SUMMARY | 2024-12-04 14:10 | XMS_ITS | Encounter Summary ---
Author Organization [facility] Address [address] [place] [address] Care Team Providers Care Rawhide Trimmer Name Role Phone Renea Vega PA-C Primary Care Provi camilo Emely Fernández RN Unavailable Unavailable Renea Vega PA-C Unavailable [phone] Renea Vega PA-C Unavailable [phone] Leann Arcos DO Unavailable [phone] Xiang Field PA-C Unavailable Xiang Field PA-C Unavailable [phone] Xiang Field PA-C Primary Care Provider Roberta Kirkland [facility] Unavailable [phone] Roberta Kirkland [facility] Unavailable [phone] Marcy Alvarez Bradford Unavailable [phone] Jailyn Weeks BARTENDER Unavailable [phone] I[address] Palmer [facility] Unavailable Unavailabl e Marcy Alvarez W Unavailable [phone] Jailyn Burch [facility] Unavailable [phone] Jaida Chávez Unavailable Unavailable David Mccord MD Unavailable Reason for Visit * Reason Onset Date Comments Refill Request 08/09/2017 VENLAFAXINE ER 7 5MG CAPSULES Encounter Details Date Type Department Care Team (Late st Contact Info) Description 08/09/[address] [address] Renea Vega PA-C [address] [address] Refill Request (VENLAFAXINE ER 75MG CAPSULES) Social History Tobacco Use Types Packs/Day Years Used Date Smoking Tobacco: Light Smoker Cigarettes Smokeless Tobacco: Never Comments:2-3 cigs. per day a s of 01/2014 Alcohol Use Standard Drinks/Week Comments Yes 0 (1 standard drink = 0.6 oz pur e alcohol) pint every other day Sex and Gender Information Value Date Recorded Sex Assigned at Male 06/28/2024 4:08 PM CDT Legal Sex Male 3:30 AM CUSTOMS GUARD Gender Identity Male 06/28/2024 4:08 PM CDT Sexual Orientation Straight 06/28/2024 4: 08 PM CDT documented as of this encounter Miscellaneous Notes * Telephone Encounter - Yaquelin Chilel RN - 08/13/2017 4:16 PM CDT JOSE: 12/19/2015 Systems Software Manager spoke with patient and patient no longer is in the [place] network--Moved to [facility] Systems Software Manager called Marge on [facility].to alert them to this change and to stop sending medicationrequests to clinic. Thanks! Yaquelin Chilel RN * Telephone Encounter - Yenny Reid - 08/09/2017 5:32 PM CDT Requested Prescriptions Pending Prescriptions Disp Refills ??? venlafaxine (EFFEXOR-XR) 75 MG 24 hr capsule [Pharmacy Med Name: VENLAFAXINE ER 75MG CAPSULES] Last Written Prescription Date: 02/09/2017 Last Fill Quantity: 15 capsule, # refills: 0 Last Office Visit: 12/19/2015 Future Office Visit: 15 capsule 0 Sig: TAKE 1 CAPSULE BY MOUTH DAILY Serotonin-Norepinephrine Reuptake Inhibitors Failed 08/09/2017 2:40 PM Failed - Blood pressure under 140/90 in past 12 months BP Readings from Last 3 Encounters: 06/12/16 137/87 12/19/15 100/76 04/03/15 108/60 Failed - PHQ-9 score of less than 5 in past 6 months Please review last PHQ-9 score. PHQ-9 SCORE 05/16/2015 05/17/2015 12/20/2015 Total Score - - - Total Score MyChart 17 (Moderately severe depression) - - Total Score - 17 2 PAULO-7 SCORE 12/04/2014 05/16/2015 05/17/2015 Total Score - 11 (moderate anxiety) - Total Score 15 - 11 Failed - Normal serum creatinine on file in past 12 months Recent Labs Lab Test 06/12/16 0910 CR 0.64* Failed - Recent (6 mo) or future (30 days) visit within the authorizing provider's specialty Patient had office visit in the last 6 months or has a visit in the next 30 days with authorizing provider or within the authorizing provider's specialty. See Patient Info tab in inbasket, or Choose Columns in Meds & Orders section of the refill encounter. Passed - Patient is age 18 or older documented in this encounter Plan of Treatment [...] documented as of this encounter Care Teams Rawhide Trimmer Relationship Specialty Start Date End Date Renea Vega PA-C PCP - General Physician Inverform Machine Operator 09/19/13 01/19/24 Renea Vega PA-C [address] [address] PCP - Assigned PCP 09/24/13 05/10/18 Xiang Field PA-C [address] [place] [address] PCP - General Physician Inverform Machine Operator 01/20/24 11/29/24 Emely Fernández, RN Clinic Rock Drill Operator Internal Medicine 04/24/15 Renea Vega PA-C [address] [address] Assigned PCP 09/24/13 12/24/18 Leann Arcos DO [address] [place] [address] Physician Neurology 11/23/23 Xiang Field PA-C [address] [place] [address] Physician Inverform Machine Operator Physician Inverform Machine Operator 11/23/23 Xiang Field PA-C [address] [address] Assigned PCP 12/29/23 Roberta Kirkland, [facility] [address] [place] [address] [place] [id number] Pharmacist Pharmacist 01/26/24 Roberta Kirkland [facility] [address] [facility] [address] [place] [address] Assigned MTM Pharmacist 01/29/24 Marcy Alvarez, W Community Health Worker 04/20/2404/21 Jailyn Weeks, [facility] Lead Rock Drill Operator Primary Care - CC 04/21/24 Ivet Palmer [facility] Lead Rock Drill Operator 04/28/2407/07 Marcy Alvarez, W Community Health Worker 04/28/2405/22 [facility] [address] [place] [address] Assigned Behavioral Health Provider 04/30/24 Jaida Chávez Community Health Worker 05/22/2407/07 David Mccord MD [address] [facility] [address] [place] [id number] Assigned Neuroscience Provider 05/28/24 documented as of this encounter
--- OUTSIDE RECORDS SUMMARY | 2024-12-04 14:10 | XMS_ITS | Encounter Summary ---
Author Organization [facility] Address [address] [place] [address] Care Team Providers Care Language And Literature Division Chair Name Role Phone Emely Fernández RN Unavailable Unavailable Leann Arcos DO Unavailable [phone] Xiang Field PA-C Unavailable [phone] Xiang Field PA-C Unavailable Xiang Field PA-C Primary Care Provider Roberta Kirkland [facility] Unavailable [phone] Roberta Kirkland [facility] Unavailable Jailyn Weeks [facility] Unavailable [phone] Ivet Palmer Unavailable UnavailMarcy Iverson W Unavailable [phone] Jailyn Burch [facility] Unavailable Jaida Chávez Unavailable Unavailable David Mccord MD Unavailable Encounter Details Date Type Department Care Team (Late st Contact Info) Description 04/28/2024 [facility] Care Coordination [facility] [address] [place] [address] Ivet Palmer LICSW Social History Tobacco Use Types Packs/Day Years [...] re latives? Once a week 01/06/2024 Attends Christian Services Not on file 01/05 Active Member of Clubs or Organizations Not on f ile 01/06/2024 Attends Club or Organization Meetings Not on sg e 01/06/2024 Marital Status Not on file 01/06/2024 PHQ-2 Answer Date Recorded PHQ-2 Score 5 04/19/2024 [facility] of Occupat ional Health - Occupational Stress [...] in an abandoned building, in an overnight mcc, or couch-surfing.) No 01/06/2024 Are you worried [...] PM CDT Legal Sex Male 3:30 AM TRANSPORTATION WORKER Gender Identity Male 06/28/2024 4:08 PM CDT Sexual Orientation Straight 06/28/2024 4: 08 PM CDT documented as of this encounter Functional Status * 1. Wish to be (Past 1 Month) Answer Date of Assessment Author No 05/01/2024 2:02 PM TRANSPORTATION WORKER Tablet, W elcome * 2. Non-Specific Active Suicidal Thoughts (Past 1 Month) Answer Date of Assessment Author No 05/01/2024 2:02 PM TRANSPORTATION WORKER Tablet, W elcome * Calculated C-SSRS Risk Score (Lifetime/Recent) Answer Date of Assessment Author No Risk Indicated 05/01/2024 2:02 PM TRANSPORTATION WORKER Tablet, Welcome * 6. Suicidal Behavior (Lifetime) Answer Date of Assessment Author No 05/01/2024 2:02 PM TRANSPORTATION WORKER Tablet, W elcome documented as of this encounter Plan of [...] Mental Health Symptoms Need Improvement 04/28/19 25 Assessment Noted Time PHQ-9 Depression Total Score: 19 025 3:00 PM TRANSPORTATION WORKER documented as of this encounter Care Teams Language And Literature Division Chair Relationship Specialty Start Date End Date Xiang Field PA-C [address] [facility] [address] [place] [address] PCP - General Physician Music Coordinator 01/20/24 11/29/24 Emely Fernández, RN Clinic Roof Plumber Internal Medicine 04/24/15 Leann Arcos DO [address] [place] [address] Physician Neurology 11/23/23 Xiang Field PA-C [address] [place] [address] Physician Music Coordinator Physician Music Coordinator 11/23/23 Xiang Field PA-C [address] [place] [address] Assigned PCP 12/29/23 Roberta Kirkland [facility] [address] [place] [address] 750544 Pharmacist Pharmacist 01/26/24 [facility] [address] [place] [address] [id number] Assigned MTM Pharmacist 01/29/24 Jailyn Weeks, GROUP WORK PROGRAM DIRECTOR Lead Roof Plumber Primary Care - CC 04/21/24 Ivet Palmer LICSW Lead Roof Plumber 04/28/2407/07 Marcy Alvarez, W Community Health Worker 04/28/2405/22 Jailyn Burch, [facility] [address] [place], [place] [id number] Assigned Behavioral Health Provider 04/30/24 Jaida Chávez Community Health Worker 05/22/24/04/01 David Mccord MD [address] [address] Assigned Neuroscience Provider 05/28/24 documented as of this encounter
--- OUTSIDE RECORDS SUMMARY | 2024-12-04 14:10 | XMS_ITS | Encounter Summary ---
Author Organization [place] Address [address] [place] [address]. [place] [address] Care Team Providers Care Cutting Machine Tender Helper Name Role Phone Emely Fernnádez RN Unavailable Unavailable Leann Arcos DO Unavailable [phone] Xiang Field PA-C Unavailable [phone] Xaing Field PA-C Unavailable [phone] Roberta Kirkland [facility] Unavailable [phone] Roberta Kirkland [facility] Unavailable [phone] Jailyn Burch [facility] Unavailable [phone] David Mccord MD Unavailable Reason for Visit * Reason Onset Date Comments OTHER 11/30/2024 Encounter Details Date Type Department Care Team (Late st Contact Info) Description 11/30/2024 Telephone [facility] [address] [facility] [address] [place] [address] Xiang Field PA-C [address] [facility] [place] [address] OTHER Social History Tobacco Use Types Packs/Day Years [...] Answer Date Recorded PHQ-2 Score 1 09/25/2024 [facility] of Occupat ional Health - Occupational Stress [...] in an abandoned building, in an overnight long-term, or couch-surfing.) No 01/06/2024 Are you worried [...] PM CDT 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 Does caller want a call/response back: No documented in this encounter Plan of Treatment [...] Assessment Noted Time PHQ-9 Depression Total Score: 6 07/21/20 25 5:50 PM CDT documented as of this encounter Care Teams Cutting Machine Tender Helper Relationship Specialty Start Date End Date Emely Fernández, RN Clinic Machine Stone Polisher Apprentice Internal Medicine 04/24/15 Leann Arcos DO [address] [place] [address] Physician Neurology 11/23/23 Xiang Field PA-C [address] [facility] [address] [place] [address] Physician Bobbin Painter Physician Bobbin Painter 11/23/23 Xiang Field PA-C [address] [facility] [address] [place] [address] Assigned PCP 12/29/23 Roberta Kirk[address] [facility] [id number] [place], [place] [address] Pharmacist Pharmacist 01/26/24 Roberta Kirkland [facility] [address] [facility] [address] [place], [place] 4[address] Assigned MTM Pharmacist 01/29/24 Jailyn Burch, [facility] [address] [place], [place] [address] Assigned Behavioral Health Provider 04/30/24 David Mccord MD [address] [facility] [address] [place] [address] Assigned Neuroscience Provider 05/28/24 documented as of this encounter
--- OUTSIDE RECORDS SUMMARY | 2024-12-04 14:10 | XMS_ITS | Encounter Summary ---
Author Organization [place] Address [address] [place] [address] Care Team Providers Care Licensed Certified Orthotist Name Role Phone Emely Fernández RN Unavailable Unavailable Leann Arcos DO Unavailable [phone] Xiang Field PA-C Unavailable [phone] Xiang Field PA-C Unavailable [phone] Xiang Field PA-C Primary Care Provider Roberat Kirkland [facility] Unavailable [phone] Roberta Kirkland [facility] Unavailable Ivet Palmer [facility] Unavailable UnavailMarcy Iverson [facility] Unavailable [phone] Jailyn Burch [facility] Unavailable [phone] Jaida Chávez Unavailable Unavailable David Mccord MD Unavailable Reason for Visit * Reason Onset Date Comments Referral 05/18/2024 Encounter Details Date Type Department Care Team (Late st Contact Info) Description 05/18/2024 Telephone [facility] Neuropsychology [place] [id number] [address] [address] None Referral Social History Tobacco Use Types Packs/Day Years [...] re latives? 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 Gender Identity Male 06/28/2024 4:08 PM CDT Sexual Orientation Straight 06/28/2024 4: 08 PM CDT documented as of this encounter Miscellaneous Notes * Telephone Encounter - Marisela Greene - 05/18/2024 10:34 AM CDT [facility] Phone Message May a detailed message be left on voicemail: yes Reason for Call: Appointment Intake Referring Provider Name: David Mccord MD Diagnosis and/or Symptoms: Cognitive impairment Action Taken: Other: Routed to [facility] Neuropsychology Adult [facility] Travel Screening: Not Applicable Please review and contact patient for scheduling, per scheduling guidelines cognitive impairment requires review documented in this encounter Plan of Treatment [...] Assessment Noted Time PHQ-9 Depression Total Score: 11 08/18/ 025 9:20 AM CDT documented as of this encounter Care Teams Licensed Certified Orthotist Relationship Specialty Start Date End Date Xiang Field PA-C [address] [facility] [place] [address] PCP - General Physician Mosaic Worker 01/20/24 11/29/24 Emely Fernández, RN Clinic Commanding Officer Traffic Division Internal Medicine 04/24/15 Leann Arcos DO [address] [place] [address] [phone] Physician Neurology 11/23/23 Xiang Field PA-C [address] [place] [address] Physician Mosaic Worker Physician Mosaic Worker 11/23/23 Xiang Field PA-C [address] [place] [address] Assigned PCP 12/29/23 [facility] [address] [place] [address] 139394 Pharmacist Pharmacist 01/26/24 [facility] [address] [place] [address] 129654 Assigned MTM Pharmacist 01/29/24 Ivet Palmer LICSW Lead Commanding Officer Traffic Division 04/28/2407/07 Marcy Alvarez, [place] Community Health Worker 04/28/2405/22 Jailyn Burch, [facility] [address], [facility] [address] [place], [place] [phone] Assigned Behavioral Health Provider 04/30/24 Jaida Chávez Community Health Worker 05/22/2407/07 David Mccord MD [address] [address] Assigned Neuroscience Provider 05/28/24 documented as of this encounter
[2024-12-04 14:38] LABS: Acetaminophen* < 10.0 ug/mL (10.0-30.0); Salicylate* < 1.0 mg/dL (1.0-10)
[2024-12-04 15:49] LABS: Hematocrit* 41.6 % (37.0-53.0); Hemoglobin* 14.1 gm/dL (13.5-17.5); Immature Granulocytes Abs Auto 0.01 K/uL (0.00-0.30); Immature Granulocytes Pct Auto 0.2 %; Lymphocytes Absolute Auto 2.10 K/uL (0.90-2.90); Mean Corpuscular HGB Conc 34 gm/dL (32-36); Mean Corpuscular Hemoglobin 31 pg (26-34); Mean Corpuscular Volume 93 fL (80-100); RDW Coefficient of Variation % 12.1 % (11.5-15.5); Red Blood Count* 4.49 m/uL (4.30-5.90); White Blood Count* 5.85 K/uL (4.50-11.00)
[2024-12-04 15:51] LABS: Albumin* 4.2 g/dL (3.3-5.0); Chloride* 103 mmol/L (96-114); Slide Review Reflex No; Sodium* 137 mmol/L (135-149)
[2024-12-04 15:52] LABS: Potassium* 4.4 mmol/L (3.6-5.1)
[2024-12-04 15:54] LABS: Alanine Aminotransferase* 22 U/L (4-50); Alkaline Phosphatase* 69 U/L (40-150); Anion Gap 6 mEq/L (7-15); Aspartate Amino Transferase* 25 U/L (12-35); Bilirubin Direct* 0.2 mg/dL (0.0-0.5); Bilirubin Total* 0.5 mg/dL (0.1-1.5); Blood Urea Nitrogen* 12 mg/dL (7-30); Calcium* 9.3 mg/dL (8.4-10.6); Carbon Dioxide* 28 mmol/L (20-32); Creatinine* 0.7 mg/dL (0.5-1.5); Estimated Glomerular Filt Rate 102 ml/min; Glucose* 100 mg/dL (60-115); Total Protein* 6.9 g/dL (6.0-8.3)
[2024-12-04 15:55] LABS: Ethanol* < 0.01 % (0.01-0.03)
[2024-12-04 16:12] LABS: Appearance Urine Clear (Clear)
[2024-12-04 16:22] LABS: Cannabinoid Screen Urine POSITIVE (Negative); Methamphetamines Screen Urine Negative (Negative); Tricyclic Antidepressant Urine Negative (Negative)
[2024-12-04] MEDS: VENLAFAXINE ER 75 MG CAPSULE 150 MG PO (17:59)
== END 2024-12-05 00:02 | disposition other institution (70) ==
PROVIDERS: Emergency Medicine; Emergency Provider Family Medicine
DX: T50.992A Poisoning by other drugs, medicaments and biological substances, intentional self-harm, initial encounter (principal); F32.A Depression, unspecified
CPT/HCPCS: 36415; 80048; 80076; 80143; 80179; 80306; 81001; 82077; 85025; 99284; 99285; A9270

== ENCOUNTER 2024-12-04 23:25 | Outpatient (CLI) | payer MEDICARE, SELFPAY | END 2024-12-04 23:26 | disposition home or self-care (01) | LOC: AMB 12-12 13:28 | PROVIDERS: Visit Provider Family Medicine | DX: F32.A Depression, unspecified (principal); T50.902A Poisoning by unspecified drugs, medicaments and biological substances, intentional self-harm, initial encounter | CPT/HCPCS: A0425; A0428 ==